=== PATIENT | male | born 1955 | race African-American/Black ===

== ENCOUNTER 2016-12-04 14:51 | Inpatient (IN) | payer OTHER ==
[~2016-12-04] VITALS: Ht 188 cm; Wt 91.6 kg
[~2016-12-04 14:51] MED LIST: ASPI81TA9 PO; FURO40TA4 PO; LISI2.5T PO; METO25TA4 PO; POTA20TA4 PO; SPIR25TA PO; SPIR25TA3 PO
[2016-12-04 15:55] VITALS: BP 129/78
[2016-12-04 15:56] VITALS: BP 129/78
[2016-12-04] MEDS ORDERED: GOLD1CAP5 PO (16:29)
[2016-12-04] MEDS ORDERED: ALLO300T PO (16:29)
[2016-12-04] MEDS ORDERED: IBUP100O7 PO (16:29)
[2016-12-04] MEDS ORDERED: FUROSEMIDE 40 MG/4 ML VIAL IVP ONE (17:00)
--- NOTE | 2016-12-04 17:02 | EKG ---
[facility] [address] [place] [address] Test Date: 2016-12-04 Test Time: 16:55:03 Pat Name: BRYAN CR Department: Room: [facility] Gender: M [employer] Firer/Fireman: : 1955 Requested By: ZULEYMA MATTA Order Number: [id number] Reading MD: Measurements Intervals Outlook Rate: 71 P: 0 OR: 184 QRS: -42 QRSD: 108 T: 129 QT: 430 QTc: 473 Interpretive Statements SINUS RHYTHM ABNORMAL LEFT AXIS DEVIATION LOW LIMB LEAD VOLTAGE LVH WITH REPOLARIZATION ABNORMALITY ABNORMAL ECG RI6.01 Unconfirmed report Compared to ECG 09/10/2016 18:34:19 Left ventricular hypertrophy now present Early repolarization now present Left anterior fascicular block no longer present Right bundle-branch block no longer present Bifascicular block no longer present
[2016-12-04 17:28] LABS: BASO % 1 % (0-3); EOS % 23 % (0-3); HEMATOCRIT 33.1 % (39.0-53.0); HEMOGLOBIN 10.6 g/dL (13.0-17.5); LYMPH # 0.7 x10^3/uL (1.0-4.8); LYMPH % 18 % (24-48); MEAN CORPUSCULAR HEMOGLOBIN 31 pg (25-35); MEAN CORPUSCULAR HGB CONC 32 g/dL (31-37); MEAN CORPUSCULAR VOLUME 99 fL (79-100); MONO % 13 % (0-9); NEUT % 45 % (31-73); PLATELET COUNT 151 x10^3/uL (140-400); RED BLOOD COUNT 3.36 x10^6/uL (4.30-5.70); RED CELL DISTRIBUTION WIDTH 17.2 % (11.5-14.5); WHITE BLOOD COUNT 3.7 x10^3/uL (4.0-11.0)
[2016-12-04 17:39] LABS: BILIRUBIN,URINE NEGATIVE (NEG); GLUCOSE,URINE NEGATIVE (NEG); NITRITE,URINE NEGATIVE (NEG); PROTEIN,URINE 100 mg/dL (NEG-TRACE)
[2016-12-04 17:41] LABS: CALCIUM 8.4 mg/dL (8.5-10.1); CREATININE 1.1 mg/dL (0.7-1.3); GFR 82.3; POTASSIUM 4.1 mmol/L (3.5-5.1)
[2016-12-04 17:45] LABS: ALBUMIN 3.2 g/dL (3.4-5.0); ALBUMIN/GLOBULIN RATIO 0.7 (1.0-1.7); MAGNESIUM 2.3 mg/dL (1.8-2.4); TOTAL PROTEIN 7.5 g/dL (6.4-8.2)
[2016-12-04 17:46] LABS: BACTERIA,URINE FEW /HPF (0-FEW); RBC,URINE 0 /HPF (0-2)
[2016-12-04 17:48] LABS: SQUAMOUS EPITHELIAL CELL,UR OCC /LPF
[2016-12-04] MEDS: FUROSEMIDE INJ 100 MG in IV NORMAL SALINE 100ML 100 ML IV PRN (18:02)
[2016-12-04 19:00] VITALS: BP 126/81
[2016-12-04] MEDS ORDERED: CHLORDIAZEPOXIDE HCL 10 MG CAPSULE PO PRN (21:45)
[2016-12-04] MEDS ORDERED: CHLORDIAZEPOXIDE HCL 25 MG CAPSULE PO PRN (21:45)
[2016-12-04] MEDS ORDERED: NICOTINE 7MG PATCH. TD ONE (22:00)
[2016-12-04] MEDS: CHLORDIAZEPOXIDE HCL 25 MG CAPSULE PO SCH (22:57)
[2016-12-04 23:00] VITALS: BP 120/76
--- NOTE | 2016-12-04 23:32 | HP ---
ADMIT DATE: 12/04/2016 HISTORY OF PRESENT ILLNESS: This is a 61-year-old black male who came in to my office for the first time accompanied by his [id number]. He is not very clear in his speech. The uvignpt-pv-kcs simply brushes aside and tries to fill in. Evidently, he was last hospitalized at [facility] in August. He felt he did not get the care he needed though the truth is that he was noncompliant. He did not remember his physician's names, but did not want to go back to them. His main complaint was one of severe swelling of his thighs. He also complained of orthopnea and paroxysmal nocturnal dyspnea. He complained of abdominal distension. He had been taking his medications regularly, which consisted of allopurinol 300 mg a day, aspirin 81 mg a day, Lasix 40 mg twice a day, ibuprofen 200 mg twice a day, lisinopril 2.5 mg a day, metoprolol tartrate 25 mg twice a day and spironolactone 25 mg twice a day. He smokes, he says, half a pack of cigarettes a day. He has a history of 30 pack years of smoking. He continues to drink. He drinks hard liquor 1-1/2 pints a day. He complains of no pain. He gives no history of myocardial infarction or of a stroke. There is no history of diabetes mellitus. In August, he underwent a myocardial perfusion imaging study, which showed no evidence of ischemia. Also in April, he underwent an echocardiogram, which showed an EF of less than 15%. The left atrium was enlarged. The right ventricular systolic pressure was 55 mmHg. There was mild mitral regurgitation and moderate tricuspid regurgitation. PHYSICAL EXAMINATION: GENERAL: He was in no distress. As stated before, he was able to answer questions, but the speech was somewhat slurred. I could not quite understand him and he preferred that I talked to his [id number]-pm-aap. VITAL SIGNS: He is afebrile. The heart rate was 100 per minute and regular. The blood pressure was 120/80. The oxygen saturation was 99% on room air. LUNGS: Clear. NECK: The jugular venous pressure was raised. HEART: The first and second sounds are normal. There is no S3 or S4. ABDOMEN: Distended. There is significant edema of the abdominal wall. EXTREMITIES: There is significant edema of both thighs. There was only 1+ edema of the legs. GENITALIA: He said that his scrotum was enlarged and this was not examined at that point. An EKG shows a first degree AV block. There are no significant changes. A chest x-ray showed mild cardiomegaly and increase in pulmonary vascular congestion. LABORATORY DATA: Hemoglobin was 10.6 grams percent. The white cell count was 3700 with 45% neutrophils, 18% lymphocytes, 13% monocytes and 23% eosinophils. The sodium was 146, potassium 4.1. The BUN was 20, creatinine was 1.1. The BNP was 5626. The albumin is 3.2 grams percent. Urinalysis was negative. IMPRESSION: 1. History of nonischemic cardiomyopathy. 2. Acute on chronic systolic congestive heart failure. 3. Significant alcoholism contributing to the cardiomyopathy. 4. Eosinophilia, etiology unclear. 5. Tobaccoism. 6. Peripheral vascular disease. This patient has severe right heart failure. It is quite likely that he is not observing his diuretics as well. We will thus initiate vigorous diuresis keeping a close watch on his blood pressure and his creatinine. We could probably increase the dose of the spironolactone if you can presume that he is taking his medications at home. This is probably doubtful. He does drink very heavily. He probably is not alert the entire time. We will need to give him tranquilizers to prevent delirium tremens. He admits to being noncompliant with his diet and does take an increased salt. We will have the dietitian talk to him, but I doubt that he is going to change his habits. He lives with his or significant other. I will attempt to talk to her. The [id number]-mp-sxm tells me that the probably would want to talk to. Also, during this hospitalization, we will give him thiamine and encourage him to continue to take the thiamine and consider Alcoholics Anonymous. I am not quite sure whether he comprehend the fact that if he stays away from alcohol, it is quite possible that his left ventricular systolic function would improve. As far as an AICD is concerned, with all his other comorbidities and noncompliance, I am not quite sure whether AICD is warranted. An AICD was certainly not placed by the other cardiologists in 08/2016 and I agree with them. He had a known cardiomyopathy in April and so he would have qualified for an AICD in August. ZULEYMA MATTA MD DR: GIOVANNA/kg JOB#: [id number] / [id number]
[2016-12-05 05:58] LABS: CALCIUM 8.1 mg/dL (8.5-10.1); CREATININE 1.1 mg/dL (0.7-1.3); GFR 82.3; POTASSIUM 3.9 mmol/L (3.5-5.1); URIC ACID 7.1 mg/dL (3.5-7.2)
[2016-12-05 07:20] VITALS: BP 126/79
--- NOTE | 2016-12-05 08:29 | RAD ---
Exam performed: 2 views of the chest. Indication: CHF Date of Service:12/04/2016 6:41 PM . Comparison : Single view chest from 09/08/16 Findings: PA and lateral radiographs of the chest reveal a mildly enlarged cardiomediastinal contour. Pulmonary vascularity appears mildly congested streaky linear opacities are seen in both lung bases. No pleural fluid is seen. The visualized osseous structures are unremarkable. Impression: Borderline cardiomegaly with mild central vascular congestion. Mild bibasal atelectasis. The findings are similar to the previous exam of 09/10/16
[2016-12-05] MEDS: CARVEDILOL 3.125 MG TABLET PO SCH ×2 (08:53→17:30)
[2016-12-05] MEDS: ASPIRIN 81 MG TAB.CHEW PO SCH (08:53)
[2016-12-05] MEDS: LISINOPRIL 2.5 MG TABLET PO SCH (08:53)
[2016-12-05] MEDS: SPIRONOLACTONE 25 MG TABLET PO SCH ×2 (08:53→15:45)
[2016-12-05] MEDS: CHLORDIAZEPOXIDE HCL 25 MG CAPSULE PO SCH ×3 (08:53→20:29)
[2016-12-05] MEDS: NICOTINE 7MG PATCH. TD SCH (08:54)
[2016-12-05] MEDS: ALLOPURINOL 300 MG TABLET. PO SCH (08:54)
[2016-12-05] MEDS: THIAMINE 100 MG in IV NORMAL SALINE 50ML 50 ML IV SCH (09:17)
--- NOTE | 2016-12-05 09:19 | PDOC ---
Provider Note Provider Note UROLOGY: Dr Proctor is currently out of town for next 10 days Thank-you, ZEINA PROCTOR DO Dec 05, 2016 09:19
[2016-12-05 10:25] VITALS: BP 110/65
--- NOTE | 2016-12-05 13:50 | PDOC2 ---
CONSULT Date of Consult Date of Consult DATE: 12/05/16 TIME: 13:43 Reason for Consult Reason for Consult: im management Referring Physician Referring Physician: dr. Ko Identification/Chief Complaint Chief Complaint sob, leg edema Source Source: Chart review, Patient History of Present Illness Reason for Visit: 61yo M, severe systolic CHF with EF 27% comes for sob and leg edema for 1 week, exertional sob, orthopnea, paraxysmal dyspnea, with mild cough, clear sputum. no fever ,chills. + distended abd smoke on lasix 40mg bid at home. Past Medical History Cardiovascular: CHF, HTN, Other Pulmonary: No pertinent hx GI: No pertinent hx Heme/Onc: No pertinent hx Hepatobiliary: No pertinent hx Psych: No pertinent hx Musculoskeletal: Osteoarthritis Rheumatologic: Gout Infectious disease: No pertinent hx Renal/: No pertinent hx Endocrine: No pertinent hx Past Surgical History Past Surgical History: Hernia Repair Family History Family History: Diabetes, Hypertension, Family History Unknown Social History <1 pack per day ALCOHOL: heavy Drugs: None Lives: with Family Current Medications Current Medications Current Medications Furosemide 40 mg 40 mg 1X ONCE IVP Last administered on 12/04/16 17:59; Start 12/04/16 at 17:00; Stop 12/04/16 at 17:01; Status DC Furosemide/Sodium Chloride (Lasix Drip/Iv Sodium Chloride 0.9% 100ml) 100 ml @ 0 mls/hr CONT PRN IV SEE I/O RECORD Last administered on 12/04/16 18:02; Start 12/04/16 at 16:45 Allopurinol (Zyloprim) 300 mg DAILY PO Last administered on 12/05/16 08:54; Start 12/05/16 at 09:00 Lisinopril (Prinivil) 2.5 mg DAILY PO Last administered on 12/05/16 08:53; Start 12/05/16 at 09:00 Carvedilol (Coreg) 3.125 mg BIDWMEALS PO Last administered on 12/05/16 08:53; Start 12/05/16 at 08:00 Aspirin (Children'S Aspirin) 81 mg DAILYWBKFT PO Last administered on 08:53; Start 12/05/16 at 08:00 Spironolactone 25 mg 25 mg BID94 PO Last administered on 12/05/16 08:53; Start 12/05/16 at 09:00 Thiamine HCl/ Sodium Chloride (Iv Sodium Chloride 0.9% 50ml) 51 ml @ 102 mls/ hr DAILY IV Last administered on 12/05/16 09:17; Start 12/05/16 at 09:00 Nicotine (Nicoderm Cq 7mg) 1 patch DAILY TD Last administered on 12/05/16 08: 54; Start 12/05/16 at 09:00 Chlordiazepoxide (Librium) 10 mg PRN Q4HRS PRN PO ANXIETY; Start 12/04/16 at 21 :45; Stop 12/04/16 at 21:45; Status DC Chlordiazepoxide (Librium) 25 mg Q8HRS PO Last administered on 12/05/16 08:53 ; Start 12/04/16 at 22:00 Chlordiazepoxide (Librium) 10 mg PRN Q4HRS PRN PO ANXIETY; Start 12/04/16 at 21 :45 Nicotine (Nicoderm Cq 7mg) 1 patch 1X ONCE TD Last administered on 12/04/16 22:57; Start 12/04/16 at 22:00; Stop 12/04/16 at 22:01; Status DC Active Scripts Active Lisinopril 2.5 Mg Tablet 1 Tab PO DAILY Metoprolol Tartrate 25 Mg Tablet 1 Tab PO BID Aldactone (Spironolactone) 25 Mg Tablet 25 Mg PO DAILY Furosemide 40 Mg Tablet 40 Mg PO BID Aspirin Ec (Aspirin) 81 Mg Tablet.dr 81 Mg PO DAILYWBKFT Reported Echinacea & Goldenseal Cap (Prado Seal/Echinacea Purpurea) 1 Each Capsule 1 Each PO DAILY Ibuprofen 100 Mg/5 Ml Oral.susp 200 Mg PO DAILY Allopurinol 300 Mg Tablet 1 Tab PO DAILY Spironolactone 25 Mg Tablet 1 Tab PO DAILY Allergies Allergies: Coded Allergies: No Known Drug Allergies (Unverified , 05/20/16) Physical Exam General: Alert, Oriented X3, Cooperative HEENT: Atraumatic, PERRLA Lungs: Other (bl basilar rales) Abdomen: Normal bowel sounds, Soft, Other (distended abd, mild) Extremities: No clubbing, Other (bl leg 1 + edema) Skin: No rashes, No breakdown Neuro: Normal gait Vitals VITALS Vital Signs Date Time Temp Pulse Resp B/P Pulse Ox O2 Delivery O2 Flow Rate FiO2 12/05/16 10:25 98.1 75 20 110/65 100 Nasal Cannula 2.0 98.1 Labs Labs Laboratory Tests Test 12/04/16 17:10 12/04/16 17:24 12/05/16 04:30 White Blood Count 3.7x10^3/uL (4.0-11.0) Red Blood Count 3.36x10^6/uL (4.30-5.70) Hemoglobin 10.6g/dL (13.0-17.5) Hematocrit 33.1% (39.0-53.0) Mean Corpuscular Volume 99fL (79-100) Mean Corpuscular Hemoglobin 31pg (25-35) Mean Corpuscular Hemoglobin Concent 32g/dL (31-37) Red Cell Distribution Width 17.2% (11.5-14.5) Platelet Count 151x10^3/uL (140-400) Neutrophils (%) (Auto) 45% (31-73) Lymphocytes (%) (Auto) 18% (24-48) Monocytes (%) (Auto) 13% (0-9) Eosinophils (%) (Auto) 23% (0-3) Basophils (%) (Auto) 1% (0-3) Neutrophils # (Auto) 1.6x10^3uL (1.8-7.7) Lymphocytes # (Auto) 0.7x10^3/uL (1.0-4.8) Monocytes # (Auto) 0.5x10^3/uL (0.0-1.1) Eosinophils # (Auto) 0.9x10^3/uL (0.0-0.7) Basophils # (Auto) 0.0x10^3/uL (0.0-0.2) Sodium Level 146mmol/L (136-145) 144mmol/L (136-145) Potassium Level 4.1mmol/L (3.5-5.1) 3.9mmol/L (3.5-5.1) Chloride Level 108mmol/L (98-107) 107mmol/L (98-107) Carbon Dioxide Level 31mmol/L (21-32) 29mmol/L (21-32) Anion Gap 7 (6-14) 8 (6-14) Blood Urea Nitrogen 20mg/dL (8-26) 20mg/dL (8-26) Creatinine 1.1mg/dL (0.7-1.3) 1.1mg/dL (0.7-1.3) Estimated GFR (Cockcroft-Gault) 82.3 82.3 BUN/Creatinine Ratio 18 (6-20) Glucose Level 78mg/dL (70-99) 85mg/dL (70-99) Calcium Level 8.4mg/dL (8.5-10.1) 8.1mg/dL (8.5-10.1) Magnesium Level 2.3mg/dL (1.8-2.4) Total Bilirubin 1.0mg/dL (0.2-1.0) Aspartate Amino Transf (AST/SGOT) 24U/L (15-37) Alanine Aminotransferase (ALT/SGPT) 18U/L (16-63) Alkaline Phosphatase 200U/L (46-116) TA-Vvc-T-Type Natriuretic Peptide 5626pg/mL (0-124) Total Protein 7.5g/dL (6.4-8.2) Albumin 3.2g/dL (3.4-5.0) Albumin/Globulin Ratio 0.7 (1.0-1.7) Urine Collection Type Unknown Urine Color Yellow Urine Clarity Clear Urine pH 6.0 Urine Specific [place] 1.010 Urine Protein 100mg/dL (NEG-TRACE) Urine Glucose (UA) Negativemg/dL (NEG) Urine Ketones (Stick) Negativemg/dL (NEG) Urine Blood Negative (NEG) Urine Nitrite Negative (NEG) Urine Bilirubin Negative (NEG) Urine Urobilinogen Dipstick 1.0mg/dL (0.2 mg/dL) Urine Leukocyte Esterase Negative (NEG) Urine RBC 0/HPF (0-2) Urine WBC 1-4/HPF (0-4) Urine Squamous Epithelial Cells Occ/LPF Urine Bacteria Few/HPF (0-FEW) Urine Hyaline Casts Few/HPF Urine Mucus Slight/LPF Uric Acid 7.1mg/dL (3.5-7.2) Laboratory Tests Test 12/04/16 17:10 12/04/16 17:24 12/05/16 04:30 White Blood Count 3.7x10^3/uL (4.0-11.0) Red Blood Count 3.36x10^6/uL (4.30-5.70) Hemoglobin 10.6g/dL (13.0-17.5) Hematocrit 33.1% (39.0-53.0) Mean Corpuscular Volume 99fL (79-100) Mean Corpuscular Hemoglobin 31pg (25-35) Mean Corpuscular Hemoglobin Concent 32g/dL (31-37) Red Cell Distribution Width 17.2% (11.5-14.5) Platelet Count 151x10^3/uL (140-400) Neutrophils (%) (Auto) 45% (31-73) Lymphocytes (%) (Auto) 18% (24-48) Monocytes (%) (Auto) 13% (0-9) Eosinophils (%) (Auto) 23% (0-3) Basophils (%) (Auto) 1% (0-3) Neutrophils # (Auto) 1.6x10^3uL (1.8-7.7) Lymphocytes # (Auto) 0.7x10^3/uL (1.0-4.8) Monocytes # (Auto) 0.5x10^3/uL (0.0-1.1) Eosinophils # (Auto) 0.9x10^3/uL (0.0-0.7) Basophils # (Auto) 0.0x10^3/uL (0.0-0.2) Sodium Level 146mmol/L (136-145) 144mmol/L (136-145) Potassium Level 4.1mmol/L (3.5-5.1) 3.9mmol/L (3.5-5.1) Chloride Level 108mmol/L (98-107) 107mmol/L (98-107) Carbon Dioxide Level 31mmol/L (21-32) 29mmol/L (21-32) Anion Gap 7 (6-14) 8 (6-14) Blood Urea Nitrogen 20mg/dL (8-26) 20mg/dL (8-26) Creatinine 1.1mg/dL (0.7-1.3) 1.1mg/dL (0.7-1.3) Estimated GFR (Cockcroft-Gault) 82.3 82.3 BUN/Creatinine Ratio 18 (6-20) Glucose Level 78mg/dL (70-99) 85mg/dL (70-99) Calcium Level 8.4mg/dL (8.5-10.1) 8.1mg/dL (8.5-10.1) Magnesium Level 2.3mg/dL (1.8-2.4) Total Bilirubin 1.0mg/dL (0.2-1.0) Aspartate Amino Transf (AST/SGOT) 24U/L (15-37) Alanine Aminotransferase (ALT/SGPT) 18U/L (16-63) Alkaline Phosphatase 200U/L (46-116) JT-Qlr-B-Type Natriuretic Peptide 5626pg/mL (0-124) Total Protein 7.5g/dL (6.4-8.2) Albumin 3.2g/dL (3.4-5.0) Albumin/Globulin Ratio 0.7 (1.0-1.7) Urine Collection Type Unknown Urine Color Yellow Urine Clarity Clear Urine pH 6.0 Urine Specific [place] 1.010 Urine Protein 100mg/dL (NEG-TRACE) Urine Glucose (UA) Negativemg/dL (NEG) Urine Ketones (Stick) Negativemg/dL (NEG) Urine Blood Negative (NEG) Urine Nitrite Negative (NEG) Urine Bilirubin Negative (NEG) Urine Urobilinogen Dipstick 1.0mg/dL (0.2 mg/dL) Urine Leukocyte Esterase Negative (NEG) Urine RBC 0/HPF (0-2) Urine WBC 1-4/HPF (0-4) Urine Squamous Epithelial Cells Occ/LPF Urine Bacteria Few/HPF (0-FEW) Urine Hyaline Casts Few/HPF Urine Mucus Slight/LPF Uric Acid 7.1mg/dL (3.5-7.2) Assessment/Plan Assessment/Plan 1. acute on chronic systolic CHF 2. h/o nonischemia cardiomyopathy 3. tobaccoism 4. PVD 5. Alcoholism 6. anemia ,2/2 chronic dz 7. chronic eos, not clear etiology plan: 1. fu with card on lasix drip now 2. cont home meds, hold lasix po for now 3. ABD US 4. DVT PPX Thanks for asking [facility] for consult MICHAELA HOLLEY MD Dec 05, 2016 13:50
[2016-12-05] MEDS ORDERED: ACETAMINOPHEN 325 MG TABLET. PO PRN (14:00)
[2016-12-05] MEDS ORDERED: ONDANSETRON PF 4 MG/2 ML VIAL. IV PRN (14:00)
[2016-12-05 14:07] VITALS: BP 94/72
[2016-12-05] MEDS: ENOXAPARIN 40 MG/0.4 ML DISP.SYRIN. SQ SCH (15:45)
[2016-12-05] MEDS: FUROSEMIDE INJ 100 MG in IV NORMAL SALINE 100ML 100 ML IV PRN (15:46)
--- NOTE | 2016-12-05 15:59 | PDOC ---
Provider Note Provider Note He feels better though still feels as though he is bloated. Urine output of 2600 mL has been recorded in the last 24 hours. There has been a weight loss of 4 pounds. Plan to increase the dose of the Lasix drip. I talked to him about alcoholism and he appears to understand and promises not drink again. No evidence of delirium tremens. ZULEYMA MATTA MD Dec 05, 2016 15:59
[2016-12-05 19:00] VITALS: BP 93/61
[2016-12-05 23:00] VITALS: BP 104/57
[2016-12-06 03:33] VITALS: BP 116/64
[2016-12-06 04:54] LABS: BASO % 1 % (0-3); EOS % 25 % (0-3); HEMATOCRIT 30.6 % (39.0-53.0); LYMPH # 0.8 x10^3/uL (1.0-4.8); LYMPH % 23 % (24-48); MEAN CORPUSCULAR HEMOGLOBIN 32 pg (25-35); MEAN CORPUSCULAR HGB CONC 33 g/dL (31-37); MEAN CORPUSCULAR VOLUME 97 fL (79-100); MONO % 13 % (0-9); NEUT % 37 % (31-73); PLATELET COUNT 141 x10^3/uL (140-400); RED BLOOD COUNT 3.15 x10^6/uL (4.30-5.70); RED CELL DISTRIBUTION WIDTH 17.1 % (11.5-14.5); WHITE BLOOD COUNT 3.6 x10^3/uL (4.0-11.0)
[2016-12-06 05:14] LABS: CALCIUM 8.1 mg/dL (8.5-10.1); CREATININE 1.1 mg/dL (0.7-1.3); GFR 82.3
[2016-12-06] MEDS: CHLORDIAZEPOXIDE HCL 25 MG CAPSULE PO SCH ×3 (05:52→22:16)
[2016-12-06 07:35] VITALS: BP 128/78
--- NOTE | 2016-12-06 08:37 | RAD ---
EXAM: ABDOMINAL ULTRASOUND. HISTORY: Abdominal distention. COMPARISON: None. FINDINGS: Sonographic evaluation of the abdomen was performed. The liver appears normal in parenchymal echotexture. There are no focal lesions. The spleen measures 12 cm. The gallbladder is contracted but otherwise unremarkable. There is no sonographic Dale sign. The common duct is at the upper limits of normal caliber at 7 mm. No distal obstructing lesion is appreciated. The pancreas is obscured by bowel gas. The right kidney measures 11.7 cm. The lower pole is obscured by bowel gas. Cortical thickness and echogenicity are preserved. There is no hydronephrosis. The left kidney measures 12.3 cm. Cortical thickness and echogenicity are preserved. There is no hydronephrosis. The visualized portions of the abdominal aorta and inferior vena cava are grossly patent and normal in caliber. A right pleural effusion is noted. There is a small mild ascites. IMPRESSION: 1. Small amount of ascites. 2. Right pleural effusion. 3. Common duct at upper limits of normal caliber. Correlate for cholestasis to assess significance. 4. The pancreas is obscured currently.
[2016-12-06] MEDS: CARVEDILOL 3.125 MG TABLET PO SCH ×2 (08:45→16:28)
[2016-12-06] MEDS: LISINOPRIL 2.5 MG TABLET PO SCH (08:45)
[2016-12-06] MEDS: ALLOPURINOL 300 MG TABLET. PO SCH (08:45)
[2016-12-06] MEDS: ASPIRIN 81 MG TAB.CHEW PO SCH (08:46)
[2016-12-06] MEDS: SPIRONOLACTONE 25 MG TABLET PO SCH ×2 (08:46→16:28)
[2016-12-06] MEDS: NICOTINE 7MG PATCH. TD SCH (08:46)
[2016-12-06] MEDS: THIAMINE 100 MG in IV NORMAL SALINE 50ML 50 ML IV SCH (09:08)
[2016-12-06] MEDS: FUROSEMIDE INJ 100 MG in IV NORMAL SALINE 100ML 100 ML IV PRN (09:08)
[2016-12-06 10:15] VITALS: BP 116/72
--- NOTE | 2016-12-06 10:19 | PDOC2 ---
CONSULT Date of Consult Date of Consult DATE: 12/06/16 TIME: 10:12 Reason for Consult Reason for Consult: Eosinophilia Referring Physician Referring Physician: Stefani Identification/Chief Complaint Chief Complaint CHF Source Source: Chart review, Patient History of Present Illness Reason for Visit: 61yo alcoholic and active smoker presented with anasarca and respiratory failure consistent with exacerbation from known systolic CHF. Found to have mild eosinophilia (AEC 900) and anemia. We were consulted to comment on these abnormalities. Patient notes long-standing heavy drinking, with minimum of 6-pack Gu[place] 45 daily and often sharing 1.5 pints of whiskey with friends. Has been more dyspneic lately and less able to play basketball. Denies significant allergy or asthma history. No diarrhea or GI complaints. Past Medical History Cardiovascular: CHF, HTN, Other Pulmonary: No pertinent hx GI: No pertinent hx Heme/Onc: No pertinent hx Hepatobiliary: No pertinent hx Psych: No pertinent hx Musculoskeletal: Osteoarthritis Rheumatologic: Gout Infectious disease: No pertinent hx Renal/: No pertinent hx Endocrine: No pertinent hx Past Surgical History Past Surgical History: Hernia Repair Family History Family History: Diabetes, Hypertension Social History <1 pack per day ALCOHOL: heavy Drugs: None Lives: with Family Current Medications Current Medications Current Medications Furosemide 40 mg 40 mg 1X ONCE IVP Last administered on 12/04/16 17:59; Start 12/04/16 at 17:00; Stop 12/04/16 at 17:01; Status DC Furosemide/Sodium Chloride (Lasix Drip/Iv Sodium Chloride 0.9% 100ml) 100 ml @ 0 mls/hr CONT PRN IV SEE I/O RECORD Last administered on 12/06/16 09:08; Start 12/04/16 at 16:45 Allopurinol (Zyloprim) 300 mg DAILY PO Last administered on 12/06/16 08:45; Start 12/05/16 at 09:00 Lisinopril (Prinivil) 2.5 mg DAILY PO Last administered on 12/06/16 08:45; Start 12/05/16 at 09:00 Carvedilol (Coreg) 3.125 mg BIDWMEALS PO Last administered on 12/06/16 08:45; Start 12/05/16 at 08:00 Aspirin (Children'S Aspirin) 81 mg DAILYWBKFT PO Last administered on 08:46; Start 12/05/16 at 08:00 Spironolactone 25 mg 25 mg BID94 PO Last administered on 12/06/16 08:46; Start 12/05/16 at 09:00 Thiamine HCl/ Sodium Chloride (Iv Sodium Chloride 0.9% 50ml) 51 ml @ 102 mls/ hr DAILY IV Last administered on 12/06/16 09:08; Start 12/05/16 at 09:00 Nicotine (Nicoderm Cq 7mg) 1 patch DAILY TD Last administered on 12/06/16 08: 46; Start 12/05/16 at 09:00 Chlordiazepoxide (Librium) 10 mg PRN Q4HRS PRN PO ANXIETY; Start 12/04/16 at 21 :45; Stop 12/04/16 at 21:45; Status DC Chlordiazepoxide (Librium) 25 mg Q8HRS PO Last administered on 12/06/16 05:52 ; Start 12/04/16 at 22:00 Chlordiazepoxide (Librium) 10 mg PRN Q4HRS PRN PO ANXIETY; Start 12/04/16 at 21 :45 Nicotine (Nicoderm Cq 7mg) 1 patch 1X ONCE TD Last administered on 12/04/16 22:57; Start 12/04/16 at 22:00; Stop 12/04/16 at 22:01; Status DC Acetaminophen (Tylenol) 650 mg PRN Q6HRS PRN PO MILD PAIN / TEMP Last administered on 12/05/16 20:28; Start 12/05/16 at 14:00 Ondansetron HCl (Zofran) 4 mg PRN Q6HRS PRN IV NAUSEA/VOMITING; Start 12/05/16 at 14:00 Enoxaparin Sodium (Lovenox 40mg Syringe) 40 mg Q24H SQ Last administered on 15:45; Start 12/05/16 at 15:00 Active Scripts Active Lisinopril 2.5 Mg Tablet 1 Tab PO DAILY Metoprolol Tartrate 25 Mg Tablet 1 Tab PO BID Aldactone (Spironolactone) 25 Mg Tablet 25 Mg PO DAILY Furosemide 40 Mg Tablet 40 Mg PO BID Aspirin Ec (Aspirin) 81 Mg Tablet.dr 81 Mg PO DAILYWBKFT Reported Echinacea & Goldenseal Cap (Prado Seal/Echinacea Purpurea) 1 Each Capsule 1 Each PO DAILY Ibuprofen 100 Mg/5 Ml Oral.susp 200 Mg PO DAILY Allopurinol 300 Mg Tablet 1 Tab PO DAILY Spironolactone 25 Mg Tablet 1 Tab PO DAILY Allergies Allergies: Coded Allergies: No Known Drug Allergies (Unverified , 05/20/16) ROS General: No: Chills PSYCHOLOGICAL ROS: No: Anxiety Eyes: No Blurry vision HEENT: No: Sinus pain ALLERGY AND IMMUNOLOGY: No: Hives, Seasonal Allergies Hematological and Lymphatic: No: Bleeding Problems Respiratory: YES: Shortness of breath, No: Cough Cardiovascular: yes Edema Gastrointestinal: No Diarrhea, No Nausea Genitourinary: No Dysuria Musculoskeletal: No Gait Disturbance Neurological: No Behavorial Changes Skin: No Rash Physical Exam General: Alert, Oriented X3 Lungs: Other (Decreased BS at bilateral bases) Heart: Regular rate Abdomen: Soft, No tenderness Extremities: Other (Bilateral pittign LE edema) Skin: No rashes Neuro: Normal speech Psych/Mental Status: Mental status NL MUSCULOSKELETAL: No joint tenderness Vitals VITALS Vital Signs Date Time Temp Pulse Resp B/P Pulse Ox O2 Delivery O2 Flow Rate FiO2 12/06/16 08:45 76 128/78 12/06/16 08:00 Room Air 12/06/16 07:35 96.7 20 100 96.7 12/05/16 14:07 2.0 Labs Labs Laboratory Tests Test 12/04/16 17:10 12/04/16 17:24 12/05/16 04:30 12/06/16 04:26 White Blood Count 3.7x10^3/uL (4.0-11.0) 3.6x10^3/uL (4.0-11.0) Red Blood Count 3.36x10^6/uL (4.30-5.70) 3.15x10^6/uL (4.30-5.70) Hemoglobin 10.6g/dL (13.0-17.5) 10.0g/dL (13.0-17.5) Hematocrit 33.1% (39.0-53.0) 30.6% (39.0-53.0) Mean Corpuscular Volume 99fL (79-100) 97fL (79-100) Mean Corpuscular Hemoglobin 31pg (25-35) 32pg (25-35) Mean Corpuscular Hemoglobin Concent 32g/dL (31-37) 33g/dL (31-37) Red Cell Distribution Width 17.2% (11.5-14.5) 17.1% (11.5-14.5) Platelet Count 151x10^3/uL (140-400) 141x10^3/uL (140-400) Neutrophils (%) (Auto) 45% (31-73) 37% (31-73) Lymphocytes (%) (Auto) 18% (24-48) 23% (24-48) Monocytes (%) (Auto) 13% (0-9) 13% (0-9) Eosinophils (%) (Auto) 23% (0-3) 25% (0-3) Basophils (%) (Auto) 1% (0-3) 1% (0-3) Neutrophils # (Auto) 1.6x10^3uL (1.8-7.7) 1.3x10^3uL (1.8-7.7) Lymphocytes # (Auto) 0.7x10^3/uL (1.0-4.8) 0.8x10^3/uL (1.0-4.8) Monocytes # (Auto) 0.5x10^3/uL (0.0-1.1) 0.5x10^3/uL (0.0-1.1) Eosinophils # (Auto) 0.9x10^3/uL (0.0-0.7) 0.9x10^3/uL (0.0-0.7) Basophils # (Auto) 0.0x10^3/uL (0.0-0.2) 0.0x10^3/uL (0.0-0.2) Sodium Level 146mmol/L (136-145) 144mmol/L (136-145) 142mmol/L (136-145) Potassium Level 4.1mmol/L (3.5-5.1) 3.9mmol/L (3.5-5.1) 4.0mmol/L (3.5-5.1) Chloride Level 108mmol/L (98-107) 107mmol/L (98-107) 105mmol/L (98-107) Carbon Dioxide Level 31mmol/L (21-32) 29mmol/L (21-32) 30mmol/L (21-32) Anion Gap 7 (6-14) 8 (6-14) 7 (6-14) Blood Urea Nitrogen 20mg/dL (8-26) 20mg/dL (8-26) 20mg/dL (8-26) Creatinine 1.1mg/dL (0.7-1.3) 1.1mg/dL (0.7-1.3) 1.1mg/dL (0.7-1.3) Estimated GFR (Cockcroft-Gault) 82.3 82.3 82.3 BUN/Creatinine Ratio 18 (6-20) Glucose Level 78mg/dL (70-99) 85mg/dL (70-99) 90mg/dL (70-99) Calcium Level 8.4mg/dL (8.5-10.1) 8.1mg/dL (8.5-10.1) 8.1mg/dL (8.5-10.1) Magnesium Level 2.3mg/dL (1.8-2.4) Total Bilirubin 1.0mg/dL (0.2-1.0) Aspartate Amino Transf (AST/SGOT) 24U/L (15-37) Alanine Aminotransferase (ALT/SGPT) 18U/L (16-63) Alkaline Phosphatase 200U/L (46-116) CT-Ezs-Z-Type Natriuretic Peptide 5626pg/mL (0-124) Total Protein 7.5g/dL (6.4-8.2) Albumin 3.2g/dL (3.4-5.0) Albumin/Globulin Ratio 0.7 (1.0-1.7) Urine Collection Type Unknown Urine Color Yellow Urine Clarity Clear Urine pH 6.0 Urine Specific [place] 1.010 Urine Protein 100mg/dL (NEG-TRACE) Urine Glucose (UA) Negativemg/dL (NEG) Urine Ketones (Stick) Negativemg/dL (NEG) Urine Blood Negative (NEG) Urine Nitrite Negative (NEG) Urine Bilirubin Negative (NEG) Urine Urobilinogen Dipstick 1.0mg/dL (0.2 mg/dL) Urine Leukocyte Esterase Negative (NEG) Urine RBC 0/HPF (0-2) Urine WBC 1-4/HPF (0-4) Urine Squamous Epithelial Cells Occ/LPF Urine Bacteria Few/HPF (0-FEW) Urine Hyaline Casts Few/HPF Urine Mucus Slight/LPF Uric Acid 7.1mg/dL (3.5-7.2) Laboratory Tests Test 12/06/16 04:26 White Blood Count 3.6x10^3/uL (4.0-11.0) Red Blood Count 3.15x10^6/uL (4.30-5.70) Hemoglobin 10.0g/dL (13.0-17.5) Hematocrit 30.6% (39.0-53.0) Mean Corpuscular Volume 97fL (79-100) Mean Corpuscular Hemoglobin 32pg (25-35) Mean Corpuscular Hemoglobin Concent 33g/dL (31-37) Red Cell Distribution Width 17.1% (11.5-14.5) Platelet Count 141x10^3/uL (140-400) Neutrophils (%) (Auto) 37% (31-73) Lymphocytes (%) (Auto) 23% (24-48) Monocytes (%) (Auto) 13% (0-9) Eosinophils (%) (Auto) 25% (0-3) Basophils (%) (Auto) 1% (0-3) Neutrophils # (Auto) 1.3x10^3uL (1.8-7.7) Lymphocytes # (Auto) 0.8x10^3/uL (1.0-4.8) Monocytes # (Auto) 0.5x10^3/uL (0.0-1.1) Eosinophils # (Auto) 0.9x10^3/uL (0.0-0.7) Basophils # (Auto) 0.0x10^3/uL (0.0-0.2) Sodium Level 142mmol/L (136-145) Potassium Level 4.0mmol/L (3.5-5.1) Chloride Level 105mmol/L (98-107) Carbon Dioxide Level 30mmol/L (21-32) Anion Gap 7 (6-14) Blood Urea Nitrogen 20mg/dL (8-26) Creatinine 1.1mg/dL (0.7-1.3) Estimated GFR (Cockcroft-Gault) 82.3 Glucose Level 90mg/dL (70-99) Calcium Level 8.1mg/dL (8.5-10.1) Assessment/Plan Assessment/Plan Impression: - Eosinophilia - Anemia - Borderline neutrophil count - Alcoholism - Acute on chronic systolic CHF with EF 15% - Active smoker Recommend: Eosinophilia is mild and of unclear etiology, but I doubt an underlying ominous process. Differential includes allergy, parasites, and less commonly either primary hematologic process or in response to underlying hematologic malignancy. Overall, I doubt an underlying malignancy. Anemia is common in alcoholism due to direct marrow toxicity, pyridoxine 5-phosphate deficiency, and frequently underlying mineral deficiencies from poor diet. While primary hypereosinophilic syndrome can lead to CHF, this typically associated with much higher counts, more systemic symptoms and in absence of alternative explanation. 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 Recommend: - Check B12, folate, copper, iron indices - Check strongyloides serology - Start oral B-complex vitamin - Agree with supportive care for alcoholism and risk of DTs - Continue aggressive CHF management Typically alcoholic cardiomyopathy reverses with cessation of alcohol. If remains with significant CHF after stopping drinking, then would consider additional work up. ARIADNA CALDWELL MD Dec 06, 2016 10:19
[2016-12-06 11:06] LABS: % SAT IRON 20 % (15-34); IRON,SERUM 42 ug/dL (65-175)
--- NOTE | 2016-12-06 12:56 | PDOC ---
PROGRESS NOTES Chief Complaint Chief Complaint 1. acute on chronic systolic CHF 2. h/o nonischemia cardiomyopathy 3. tobaccoism 4. PVD 5. Alcoholism 6. anemia ,2/2 chronic dz 7. chronic eos, not clear etiology plan: 1. fu with card, onco on lasix drip now 2. cont home meds, hold lasix po for now 3. ABD US result seen 4. DVT PPX Thanks for asking IPC for consult History of Present Illness History of Present Illness still sob, exertional on lasix drip Vitals Vitals Vital Signs Date Time Temp Pulse Resp B/P Pulse Ox O2 Delivery O2 Flow Rate FiO2 12/06/16 10:15 96.6 78 20 116/72 99 Room Air 96.6 12/05/16 14:07 2.0 Physical Exam General: Alert, Oriented X3 Heart: Regular rate Lungs: Crackles (bl mild) Abdomen: Soft, No tenderness Extremities: Other (Bilateral pittign LE edema) Skin: No rashes Labs LABS Laboratory Tests Test 12/06/16 04:26 White Blood Count 3.6x10^3/uL (4.0-11.0) Red Blood Count 3.15x10^6/uL (4.30-5.70) Hemoglobin 10.0g/dL (13.0-17.5) Hematocrit 30.6% (39.0-53.0) Mean Corpuscular Volume 97fL (79-100) Mean Corpuscular Hemoglobin 32pg (25-35) Mean Corpuscular Hemoglobin Concent 33g/dL (31-37) Red Cell Distribution Width 17.1% (11.5-14.5) Platelet Count 141x10^3/uL (140-400) Neutrophils (%) (Auto) 37% (31-73) Lymphocytes (%) (Auto) 23% (24-48) Monocytes (%) (Auto) 13% (0-9) Eosinophils (%) (Auto) 25% (0-3) Basophils (%) (Auto) 1% (0-3) Neutrophils # (Auto) 1.3x10^3uL (1.8-7.7) Lymphocytes # (Auto) 0.8x10^3/uL (1.0-4.8) Monocytes # (Auto) 0.5x10^3/uL (0.0-1.1) Eosinophils # (Auto) 0.9x10^3/uL (0.0-0.7) Basophils # (Auto) 0.0x10^3/uL (0.0-0.2) Sodium Level 142mmol/L (136-145) Potassium Level 4.0mmol/L (3.5-5.1) Chloride Level 105mmol/L (98-107) Carbon Dioxide Level 30mmol/L (21-32) Anion Gap 7 (6-14) Blood Urea Nitrogen 20mg/dL (8-26) Creatinine 1.1mg/dL (0.7-1.3) Estimated GFR (Cockcroft-Gault) 82.3 Glucose Level 90mg/dL (70-99) Calcium Level 8.1mg/dL (8.5-10.1) Iron Level 42ug/dL (65-175) Total Iron Binding Capacity 206ug/dL (250-450) Iron Saturation 20% (15-34) Ferritin 252ng/mL (26-388) Review of Systems Review of Systems no fever, chills, chest pain Comment Review of Relevant I have reviewed the following items shell (where applicable) has been applied. Labs Laboratory Tests Test 12/04/16 17:10 12/04/16 17:24 12/05/16 04:30 12/06/16 04:26 White Blood Count 3.7x10^3/uL (4.0-11.0) 3.6x10^3/uL (4.0-11.0) Red Blood Count 3.36x10^6/uL (4.30-5.70) 3.15x10^6/uL (4.30-5.70) Hemoglobin 10.6g/dL (13.0-17.5) 10.0g/dL (13.0-17.5) Hematocrit 33.1% (39.0-53.0) 30.6% (39.0-53.0) Mean Corpuscular Volume 99fL (79-100) 97fL (79-100) Mean Corpuscular Hemoglobin 31pg (25-35) 32pg (25-35) Mean Corpuscular Hemoglobin Concent 32g/dL (31-37) 33g/dL (31-37) Red Cell Distribution Width 17.2% (11.5-14.5) 17.1% (11.5-14.5) Platelet Count 151x10^3/uL (140-400) 141x10^3/uL (140-400) Neutrophils (%) (Auto) 45% (31-73) 37% (31-73) Lymphocytes (%) (Auto) 18% (24-48) 23% (24-48) Monocytes (%) (Auto) 13% (0-9) 13% (0-9) Eosinophils (%) (Auto) 23% (0-3) 25% (0-3) Basophils (%) (Auto) 1% (0-3) 1% (0-3) Neutrophils # (Auto) 1.6x10^3uL (1.8-7.7) 1.3x10^3uL (1.8-7.7) Lymphocytes # (Auto) 0.7x10^3/uL (1.0-4.8) 0.8x10^3/uL (1.0-4.8) Monocytes # (Auto) 0.5x10^3/uL (0.0-1.1) 0.5x10^3/uL (0.0-1.1) Eosinophils # (Auto) 0.9x10^3/uL (0.0-0.7) 0.9x10^3/uL (0.0-0.7) Basophils # (Auto) 0.0x10^3/uL (0.0-0.2) 0.0x10^3/uL (0.0-0.2) Sodium Level 146mmol/L (136-145) 144mmol/L (136-145) 142mmol/L (136-145) Potassium Level 4.1mmol/L (3.5-5.1) 3.9mmol/L (3.5-5.1) 4.0mmol/L (3.5-5.1) Chloride Level 108mmol/L (98-107) 107mmol/L (98-107) 105mmol/L (98-107) Carbon Dioxide Level 31mmol/L (21-32) 29mmol/L (21-32) 30mmol/L (21-32) Anion Gap 7 (6-14) 8 (6-14) 7 (6-14) Blood Urea Nitrogen 20mg/dL (8-26) 20mg/dL (8-26) 20mg/dL (8-26) Creatinine 1.1mg/dL (0.7-1.3) 1.1mg/dL (0.7-1.3) 1.1mg/dL (0.7-1.3) Estimated GFR (Cockcroft-Gault) 82.3 82.3 82.3 BUN/Creatinine Ratio 18 (6-20) Glucose Level 78mg/dL (70-99) 85mg/dL (70-99) 90mg/dL (70-99) Calcium Level 8.4mg/dL (8.5-10.1) 8.1mg/dL (8.5-10.1) 8.1mg/dL (8.5-10.1) Magnesium Level 2.3mg/dL (1.8-2.4) Total Bilirubin 1.0mg/dL (0.2-1.0) Aspartate Amino Transf (AST/SGOT) 24U/L (15-37) Alanine Aminotransferase (ALT/SGPT) 18U/L (16-63) Alkaline Phosphatase 200U/L (46-116) GD-Grb-A-Type Natriuretic Peptide 5626pg/mL (0-124) Total Protein 7.5g/dL (6.4-8.2) Albumin 3.2g/dL (3.4-5.0) Albumin/Globulin Ratio 0.7 (1.0-1.7) Urine Collection Type Unknown Urine Color Yellow Urine Clarity Clear Urine pH 6.0 Urine Specific [place] 1.010 Urine Protein 100mg/dL (NEG-TRACE) Urine Glucose (UA) Negativemg/dL (NEG) Urine Ketones (Stick) Negativemg/dL (NEG) Urine Blood Negative (NEG) Urine Nitrite Negative (NEG) Urine Bilirubin Negative (NEG) Urine Urobilinogen Dipstick 1.0mg/dL (0.2 mg/dL) Urine Leukocyte Esterase Negative (NEG) Urine RBC 0/HPF (0-2) Urine WBC 1-4/HPF (0-4) Urine Squamous Epithelial Cells Occ/LPF Urine Bacteria Few/HPF (0-FEW) Urine Hyaline Casts Few/HPF Urine Mucus Slight/LPF Uric Acid 7.1mg/dL (3.5-7.2) Iron Level 42ug/dL (65-175) Total Iron Binding Capacity 206ug/dL (250-450) Iron Saturation 20% (15-34) Ferritin 252ng/mL (26-388) Laboratory Tests Test 12/06/16 04:26 White Blood Count 3.6x10^3/uL (4.0-11.0) Red Blood Count 3.15x10^6/uL (4.30-5.70) Hemoglobin 10.0g/dL (13.0-17.5) Hematocrit 30.6% (39.0-53.0) Mean Corpuscular Volume 97fL (79-100) Mean Corpuscular Hemoglobin 32pg (25-35) Mean Corpuscular Hemoglobin Concent 33g/dL (31-37) Red Cell Distribution Width 17.1% (11.5-14.5) Platelet Count 141x10^3/uL (140-400) Neutrophils (%) (Auto) 37% (31-73) Lymphocytes (%) (Auto) 23% (24-48) Monocytes (%) (Auto) 13% (0-9) Eosinophils (%) (Auto) 25% (0-3) Basophils (%) (Auto) 1% (0-3) Neutrophils # (Auto) 1.3x10^3uL (1.8-7.7) Lymphocytes # (Auto) 0.8x10^3/uL (1.0-4.8) Monocytes # (Auto) 0.5x10^3/uL (0.0-1.1) Eosinophils # (Auto) 0.9x10^3/uL (0.0-0.7) Basophils # (Auto) 0.0x10^3/uL (0.0-0.2) Sodium Level 142mmol/L (136-145) Potassium Level 4.0mmol/L (3.5-5.1) Chloride Level 105mmol/L (98-107) Carbon Dioxide Level 30mmol/L (21-32) Anion Gap 7 (6-14) Blood Urea Nitrogen 20mg/dL (8-26) Creatinine 1.1mg/dL (0.7-1.3) Estimated GFR (Cockcroft-Gault) 82.3 Glucose Level 90mg/dL (70-99) Calcium Level 8.1mg/dL (8.5-10.1) Iron Level 42ug/dL (65-175) Total Iron Binding Capacity 206ug/dL (250-450) Iron Saturation 20% (15-34) Ferritin 252ng/mL (26-388) Medications Current Medications Furosemide 40 mg 40 mg 1X ONCE IVP Last administered on 12/04/16 17:59; Start 12/04/16 at 17:00; Stop 12/04/16 at 17:01; Status DC Furosemide/Sodium Chloride (Lasix Drip/Iv Sodium Chloride 0.9% 100ml) 100 ml @ 0 mls/hr CONT PRN IV SEE I/O RECORD Last administered on 12/06/16 09:08; Start 12/04/16 at 16:45 Allopurinol (Zyloprim) 300 mg DAILY PO Last administered on 12/06/16 08:45; Start 12/05/16 at 09:00 Lisinopril (Prinivil) 2.5 mg DAILY PO Last administered on 12/06/16 08:45; Start 12/05/16 at 09:00 Carvedilol (Coreg) 3.125 mg BIDWMEALS PO Last administered on 12/06/16 08:45; Start 12/05/16 at 08:00 Aspirin (Children'S Aspirin) 81 mg DAILYWBKFT PO Last administered on 08:46; Start 12/05/16 at 08:00 Spironolactone 25 mg 25 mg BID94 PO Last administered on 12/06/16 08:46; Start 12/05/16 at 09:00 Thiamine HCl/ Sodium Chloride (Iv Sodium Chloride 0.9% 50ml) 51 ml @ 102 mls/ hr DAILY IV Last administered on 12/06/16 09:08; Start 12/05/16 at 09:00 Nicotine (Nicoderm Cq 7mg) 1 patch DAILY TD Last administered on 12/06/16 08: 46; Start 12/05/16 at 09:00 Chlordiazepoxide (Librium) 10 mg PRN Q4HRS PRN PO ANXIETY; Start 12/04/16 at 21 :45; Stop 12/04/16 at 21:45; Status DC Chlordiazepoxide (Librium) 25 mg Q8HRS PO Last administered on 12/06/16 05:52 ; Start 12/04/16 at 22:00 Chlordiazepoxide (Librium) 10 mg PRN Q4HRS PRN PO ANXIETY; Start 12/04/16 at 21 :45 Nicotine (Nicoderm Cq 7mg) 1 patch 1X ONCE TD Last administered on 12/04/16 22:57; Start 12/04/16 at 22:00; Stop 12/04/16 at 22:01; Status DC Acetaminophen (Tylenol) 650 mg PRN Q6HRS PRN PO MILD PAIN / TEMP Last administered on 12/05/16 20:28; Start 12/05/16 at 14:00 Ondansetron HCl (Zofran) 4 mg PRN Q6HRS PRN IV NAUSEA/VOMITING; Start 12/05/16 at 14:00 Enoxaparin Sodium (Lovenox 40mg Syringe) 40 mg Q24H SQ Last administered on 15:45; Start 12/05/16 at 15:00 Active Scripts Active Lisinopril 2.5 Mg Tablet 1 Tab PO DAILY Metoprolol Tartrate 25 Mg Tablet 1 Tab PO BID Aldactone (Spironolactone) 25 Mg Tablet 25 Mg PO DAILY Furosemide 40 Mg Tablet 40 Mg PO BID Aspirin Ec (Aspirin) 81 Mg Tablet.dr 81 Mg PO DAILYWBKFT Reported Echinacea & Goldenseal Cap (Prado Seal/Echinacea Purpurea) 1 Each Capsule 1 Each PO DAILY Ibuprofen 100 Mg/5 Ml Oral.susp 200 Mg PO DAILY Allopurinol 300 Mg Tablet 1 Tab PO DAILY Spironolactone 25 Mg Tablet 1 Tab PO DAILY Vitals/I & O Vital Sign - Last 24 Hours 12/05/16 12/05/16 12/05/16 12/05/16 14:07 17:30 19:00 20:00 Temp 98.1 98.6 98.1 98.6 Pulse 72 78 78 Resp 20 20 B/P 94/72 114/59 93/61 Pulse Ox 97 96 O2 Delivery Nasal Cannula Room Air Room Air O2 Flow Rate 2.0 12/05/16 12/06/16 12/06/16 12/06/16 23:00 03:33 07:35 08:00 Temp 97.9 96.6 96.7 97.9 96.6 96.7 Pulse 77 72 76 Resp 20 20 20 B/P 104/57 116/64 128/78 Pulse Ox 96 98 100 O2 Delivery Room Air Room Air Room Air Room Air 12/06/16 12/06/16 12/06/16 08:45 08:45 10:15 Temp 96.6 96.6 Pulse 76 76 78 Resp 20 B/P 128/78 128/78 116/72 Pulse Ox 99 O2 Delivery Room Air Intake and Output 12/05/16 12/05/16 12/06/16 15:00 23:00 07:00 Intake Total 1380 ml 180 ml 1160 ml Output Total 850 ml 550 ml 1350 ml Balance 530 ml -370 ml -190 ml MICHAELA HOLLEY MD Dec 06, 2016 12:56
[2016-12-06 14:55] VITALS: BP 114/69
[2016-12-06] MEDS: ENOXAPARIN 40 MG/0.4 ML DISP.SYRIN. SQ SCH (16:27)
--- NOTE | 2016-12-06 18:32 | PDOC ---
Provider Note Provider Note He is still gets very short of breath on walking to the bathroom and back. He continues to diurese. He is off the oxygen. Lungs are clear. Heart no S3. Edema of the thighs and abdominal wall this has improved. Continue IV Lasix. Potassium and renal functions are stable. ZULEYMA MATTA MD Dec 06, 2016 18:32
[2016-12-06 19:00] VITALS: BP 109/62
[2016-12-06 23:06] VITALS: BP 114/61
[2016-12-06] MEDS: FUROSEMIDE 40 MG/4 ML VIAL IVP SCH (23:07)
[2016-12-07 02:37] VITALS: BP 128/75
[2016-12-07 05:48] LABS: CALCIUM 8.3 mg/dL (8.5-10.1); CREATININE 1.1 mg/dL (0.7-1.3); GFR 82.3
[2016-12-07] MEDS: FUROSEMIDE 40 MG/4 ML VIAL IVP SCH ×2 (05:53→11:50)
[2016-12-07] MEDS: CHLORDIAZEPOXIDE HCL 25 MG CAPSULE PO SCH ×3 (05:54→21:02)
[2016-12-07 07:00] VITALS: BP 133/78
--- NOTE | 2016-12-07 07:36 | RAD ---
Clinical Indication: Slurred speech Technique: Study is dated December 06, 2016. CT images of the head were obtained from the skull base to the vertex without IV contrast. There are no comparison studies available. One or more of the following individualized dose reduction techniques were utilized for this examination: 1. Automated exposure control 2. Adjustment of the mA and/or kV according to patient size 3. Use of iterative reconstruction technique Findings: There is diffuse, symmetric prominence of the ventricles and subarachnoid spaces consistent with age-related parenchymal volume loss. There are areas of scattered decreased attenuation in the supratentorial white matter. While nonspecific, findings are likely secondary to small vessel ischemic disease. There is no hemorrhage, extraaxial fluid collection, mass, or midline shift. There is no large vascular distribution infarct. There are vascular calcifications. The posterior fossa and brain stem are unremarkable. Orbits are normal. The visualized paranasal sinuses are clear. There is no skull fracture appreciated on bone level images. Impression: No acute intracranial findings. Brain parenchymal volume loss and minimal probable small vessel ischemic disease.
[2016-12-07] MEDS: LISINOPRIL 2.5 MG TABLET PO SCH (08:37)
[2016-12-07] MEDS: SPIRONOLACTONE 25 MG TABLET PO SCH ×2 (08:37→15:33)
[2016-12-07] MEDS: ALLOPURINOL 300 MG TABLET. PO SCH (08:37)
[2016-12-07] MEDS: CARVEDILOL 3.125 MG TABLET PO SCH ×2 (08:37→15:33)
[2016-12-07] MEDS: ASPIRIN 81 MG TAB.CHEW PO SCH (08:37)
[2016-12-07] MEDS: THIAMINE 100 MG TABLET. PO SCH (08:37)
[2016-12-07] MEDS: NICOTINE 7MG PATCH. TD SCH (08:38)
--- NOTE | 2016-12-07 09:30 | PDOC ---
Subjective: Subjective: Onc f/u- Anemia, eosinophilia, neutrophilia Pt reports he plans to quit drinking and smoking but cannot really tell me his plan to do so. Mild GARNER. LE swelling much better. C/o scrotal swelling. No withdrawal sx. Objective: Vital Signs: Vital Signs Date Time Temp Pulse Resp B/P Pulse Ox O2 Delivery O2 Flow Rate FiO2 12/07/16 08:37 81 128/75 12/07/16 08:00 Room Air 3.0 12/07/16 07:00 97.5 14 95 97.5 Physical Exam: Extremities: Other (1+ edema b/l LE) General: Alert, Oriented X3, Cooperative, No acute distress Lungs: Other (no resp distress) Psych/Mental Status: Mental status NL, Mood NL Labs/Imaging: CBC stable Abd U/S with no HSMG Assessment/Plan A/P: 1. Alcohol abuse 2. Tobacco abuse 3. Mild normocytic anemia- Likely related to alcohol abuse. Iron levels ok. 4. Mild eosinophilia, neutrophilia- Likely related to tobacco abuse 5. Acute on CHF, EF 15% Eosinophilia Pt states he is committed to stopping the alcohol and smoking on DC. Plan: - F/u pending B12, folate, copper - My office will set up f/u in clinic in 1 mth to recheck CBC after smoking and alcohol cessation hopefully in effect. Ok to DC from onc standpoint. GAUDENCIO KIRBY DO Dec 07, 2016 09:30
[2016-12-07 10:31] LABS: FOLATE 2.39 ng/ml (3.2-20.0)
[2016-12-07 11:00] VITALS: BP 99/59
[2016-12-07] MEDS: FUROSEMIDE INJ 100 MG in IV NORMAL SALINE 100ML 100 ML IV PRN ×2 (11:51→21:02)
--- NOTE | 2016-12-07 12:24 | PDOC ---
PROGRESS NOTES Chief Complaint Chief Complaint 1. acute on chronic systolic CHF 2. h/o nonischemia cardiomyopathy 3. tobaccoism 4. PVD 5. Alcoholism 6. anemia ,2/2 chronic dz 7. chronic eos, not clear etiology History of Present Illness History of Present Illness Patient was lying in Bed at the time of evaluation, was in no acute distress, reported exertional SOB, plan of care discussed with pt. Vitals Vitals Vital Signs Date Time Temp Pulse Resp B/P Pulse Ox O2 Delivery O2 Flow Rate FiO2 12/07/16 11:00 98.2 91 99/59 95 Nasal Cannula 3.0 98.2 12/07/16 07:00 14 Physical Exam General: Alert, Oriented X3, Cooperative, No acute distress Heart: Regular rate Lungs: Crackles (bl mild) Abdomen: Soft, No tenderness Extremities: Other (1+ edema b/l LE) Skin: No rashes Labs LABS Laboratory Tests Test 12/07/16 04:25 Sodium Level 143mmol/L (136-145) Potassium Level 4.0mmol/L (3.5-5.1) Chloride Level 104mmol/L (98-107) Carbon Dioxide Level 31mmol/L (21-32) Anion Gap 8 (6-14) Blood Urea Nitrogen 19mg/dL (8-26) Creatinine 1.1mg/dL (0.7-1.3) Estimated GFR (Cockcroft-Gault) 82.3 Glucose Level 84mg/dL (70-99) Calcium Level 8.3mg/dL (8.5-10.1) Review of Systems Review of Systems no Cough, no sputum, exertional SOB, awake, alert, oriented Assessment and Plan Assessmemt and Plan Assessment: 1. acute on chronic systolic CHF 2. h/o nonischemia cardiomyopathy 3. tobaccoism 4. PVD 5. Alcoholism 6. anemia ,2/2 chronic dz 7. chronic eos, not clear etiology Plan: - F/U with card, onco - Agree with Dr. Dhillon's plan of care - Continue PT/OT - Continue care per floor protocol - DVT Prophylaxis - Appreciate subspecialities inputs and recommendations - Problems: Comment Review of Relevant I have reviewed the following items shell (where applicable) has been applied. Labs Laboratory Tests Test 12/06/16 04:26 12/07/16 04:25 White Blood Count 3.6x10^3/uL (4.0-11.0) Red Blood Count 3.15x10^6/uL (4.30-5.70) Hemoglobin 10.0g/dL (13.0-17.5) Hematocrit 30.6% (39.0-53.0) Mean Corpuscular Volume 97fL (79-100) Mean Corpuscular Hemoglobin 32pg (25-35) Mean Corpuscular Hemoglobin Concent 33g/dL (31-37) Red Cell Distribution Width 17.1% (11.5-14.5) Platelet Count 141x10^3/uL (140-400) Neutrophils (%) (Auto) 37% (31-73) Lymphocytes (%) (Auto) 23% (24-48) Monocytes (%) (Auto) 13% (0-9) Eosinophils (%) (Auto) 25% (0-3) Basophils (%) (Auto) 1% (0-3) Neutrophils # (Auto) 1.3x10^3uL (1.8-7.7) Lymphocytes # (Auto) 0.8x10^3/uL (1.0-4.8) Monocytes # (Auto) 0.5x10^3/uL (0.0-1.1) Eosinophils # (Auto) 0.9x10^3/uL (0.0-0.7) Basophils # (Auto) 0.0x10^3/uL (0.0-0.2) Sodium Level 142mmol/L (136-145) 143mmol/L (136-145) Potassium Level 4.0mmol/L (3.5-5.1) 4.0mmol/L (3.5-5.1) Chloride Level 105mmol/L (98-107) 104mmol/L (98-107) Carbon Dioxide Level 30mmol/L (21-32) 31mmol/L (21-32) Anion Gap 7 (6-14) 8 (6-14) Blood Urea Nitrogen 20mg/dL (8-26) 19mg/dL (8-26) Creatinine 1.1mg/dL (0.7-1.3) 1.1mg/dL (0.7-1.3) Estimated GFR (Cockcroft-Gault) 82.3 82.3 Glucose Level 90mg/dL (70-99) 84mg/dL (70-99) Calcium Level 8.1mg/dL (8.5-10.1) 8.3mg/dL (8.5-10.1) Iron Level 42ug/dL (65-175) Total Iron Binding Capacity 206ug/dL (250-450) Iron Saturation 20% (15-34) Ferritin 252ng/mL (26-388) Vitamin B12 Level 258pg/mL (247-911) Serum Folate 2.39ng/ml (3.2-20.0) Laboratory Tests Test 12/07/16 04:25 Sodium Level 143mmol/L (136-145) Potassium Level 4.0mmol/L (3.5-5.1) Chloride Level 104mmol/L (98-107) Carbon Dioxide Level 31mmol/L (21-32) Anion Gap 8 (6-14) Blood Urea Nitrogen 19mg/dL (8-26) Creatinine 1.1mg/dL (0.7-1.3) Estimated GFR (Cockcroft-Gault) 82.3 Glucose Level 84mg/dL (70-99) Calcium Level 8.3mg/dL (8.5-10.1) Medications Current Medications Furosemide 40 mg 40 mg 1X ONCE IVP Last administered on 12/04/16 17:59; Start 12/04/16 at 17:00; Stop 12/04/16 at 17:01; Status DC Furosemide/Sodium Chloride (Lasix Drip/Iv Sodium Chloride 0.9% 100ml) 100 ml @ 0 mls/hr CONT PRN IV SEE I/O RECORD Last administered on 12/06/16 09:08; Start 12/04/16 at 16:45; Stop 12/06/16 at 18:37; Status DC Allopurinol (Zyloprim) 300 mg DAILY PO Last administered on 12/07/16 08:37; Start 12/05/16 at 09:00 Lisinopril (Prinivil) 2.5 mg DAILY PO Last administered on 12/07/16 08:37; Start 12/05/16 at 09:00 Carvedilol (Coreg) 3.125 mg BIDWMEALS PO Last administered on 12/07/16 08:37; Start 12/05/16 at 08:00 Aspirin (Children'S Aspirin) 81 mg DAILYWBKFT PO Last administered on 08:37; Start 12/05/16 at 08:00 Spironolactone 25 mg 25 mg BID94 PO Last administered on 12/07/16 08:37; Start 12/05/16 at 09:00 Thiamine HCl/ Sodium Chloride (Iv Sodium Chloride 0.9% 50ml) 51 ml @ 102 mls/ hr DAILY IV Last administered on 12/06/16 09:08; Start 12/05/16 at 09:00; Stop 12/06/16 at 15:11; Status DC Nicotine (Nicoderm Cq 7mg) 1 patch DAILY TD Last administered on 12/07/16 08: 38; Start 12/05/16 at 09:00 Chlordiazepoxide (Librium) 10 mg PRN Q4HRS PRN PO ANXIETY; Start 12/04/16 at 21 :45; Stop 12/04/16 at 21:45; Status DC Chlordiazepoxide (Librium) 25 mg Q8HRS PO Last administered on 12/07/16 11:50 ; Start 12/04/16 at 22:00 Chlordiazepoxide (Librium) 10 mg PRN Q4HRS PRN PO ANXIETY; Start 12/04/16 at 21 :45 Nicotine (Nicoderm Cq 7mg) 1 patch 1X ONCE TD Last administered on 12/04/16 22:57; Start 12/04/16 at 22:00; Stop 12/04/16 at 22:01; Status DC Acetaminophen (Tylenol) 650 mg PRN Q6HRS PRN PO MILD PAIN / TEMP Last administered on 12/05/16 20:28; Start 12/05/16 at 14:00 Ondansetron HCl (Zofran) 4 mg PRN Q6HRS PRN IV NAUSEA/VOMITING; Start 12/05/16 at 14:00 Enoxaparin Sodium (Lovenox 40mg Syringe) 40 mg Q24H SQ Last administered on 16:27; Start 12/05/16 at 15:00 Thiamine HCl (Vitamin B-1) 100 mg DAILY PO Last administered on 12/07/16 08:37 ; Start 12/07/16 at 09:00 Furosemide 40 mg 40 mg Q6HRS IVP Last administered on 12/07/16 11:50; Start at 00:00 Furosemide/Sodium Chloride (Lasix Drip/Iv Sodium Chloride 0.9% 100ml) 100 ml @ 0 mls/hr CONT PRN IV SEE NOTES Last administered on 12/07/16 11:51; Start at 11:30 Active Scripts Active Lisinopril 2.5 Mg Tablet 1 Tab PO DAILY Metoprolol Tartrate 25 Mg Tablet 1 Tab PO BID Aldactone (Spironolactone) 25 Mg Tablet 25 Mg PO DAILY Furosemide 40 Mg Tablet 40 Mg PO BID Aspirin Ec (Aspirin) 81 Mg Tablet.dr 81 Mg PO DAILYWBKFT Reported Echinacea & Goldenseal Cap (Prado Seal/Echinacea Purpurea) 1 Each Capsule 1 Each PO DAILY Ibuprofen 100 Mg/5 Ml Oral.susp 200 Mg PO DAILY Allopurinol 300 Mg Tablet 1 Tab PO DAILY Spironolactone 25 Mg Tablet 1 Tab PO DAILY Vitals/I & O Vital Sign - Last 24 Hours 12/06/16 12/06/16 12/06/16 12/06/16 14:55 16:28 19:00 19:15 Temp 97.9 98.9 97.9 98.9 Pulse 75 75 83 Resp 20 19 B/P 114/69 114/69 109/62 Pulse Ox 97 94 O2 Delivery Room Air Room Air Room Air 12/06/16 12/07/16 12/07/16 12/07/16 23:06 02:37 07:00 08:00 Temp 97.3 97.5 97.5 97.3 97.5 97.5 Pulse 82 81 87 Resp 20 18 14 B/P 114/61 128/75 133/78 Pulse Ox 97 92 95 O2 Delivery Room Air Room Air Nasal Cannula Room Air O2 Flow Rate 3.0 3.0 12/07/16 12/07/16 12/07/16 08:37 08:37 11:00 Temp 98.2 98.2 Pulse 81 81 91 B/P 128/75 128/75 99/59 Pulse Ox 95 O2 Delivery Nasal Cannula O2 Flow Rate 3.0 Intake and Output 12/06/16 12/06/16 12/07/16 15:00 23:00 07:00 Intake Total 451 ml 225 ml 240 ml Output Total 2350 ml 850 ml 1900 ml Balance -1899 ml -625 ml -1660 ml CAMACHO ARMIJO III DO Dec 07, 2016 12:24
[2016-12-07 15:00] VITALS: BP 107/68
[2016-12-07] MEDS: ENOXAPARIN 40 MG/0.4 ML DISP.SYRIN. SQ SCH (15:47)
[2016-12-07 19:00] VITALS: BP 122/65
--- NOTE | 2016-12-07 20:33 | CARD ---
APPROVED REPORT EXAM: Two-dimensional and M-mode echocardiogram with Doppler and color Doppler. Other Information Quality : Good INDICATION Congestive Heart Failure 2D DIMENSIONS RVDd3.7 (2.9-3.5cm)Left Atrium(2D)4.5 (1.6-4.0cm) IVSd1.1 (0.7-1.1cm)Aortic Root(2D)2.9 (2.0-3.7cm) LVDd5.6 (3.9-5.9cm)LVOT Diameter2.2 (1.8-2.4cm) PWd1.4 (0.7-1.1cm)LVDs4.7 (2.5-4.0cm) FS (%) 16.6 %SV53.3 ml LVEF(%)34.3 (>50%) Aortic Valve AoV Peak Husam.125.5cm/sAoV VTI21.0cm AO Peak GR.6.3mmHgLVOT Peak Husam.100.7cm/s LVOT VTI 16.13cmAO Mean GR.4mmHg ANGELA (VMAX)2.16uh7URA (VTI)2.80cm2 Mitral Valve MV E Rhbfadpq73.7cm/sMV DECEL BMDM554qk MV KLZ97dzODL (PHT)5.71cm2 TDI E/Lateral E'11.3E/Medial E'26.0 Tricuspid Valve TR P. [id number]/sRAP [id number] TR Peak Gr.[id number] Pulmonary Vein S1 Fqfnxabm29.7cm/sD2 Wbyfglqj36.9cm/s PVa [id number] LEFT VENTRICLE The left ventricle mildly enlarged to 5.63 cms.. There is mild concentric left ventricular hypertroph y. Left ventricle systolic function is moderately impaired. The Ejection Fraction is 30-35%. There is global hypokinesis of the left ventricle. RIGHT VENTRICLE The right ventricle is normal size. The right ventricular systolic function is normal. ATRIA The left atrium is mildly dilated. The right atrium is moderately dilated. The interatrial septum is intact with no evidence for an atrial septal defect or patent foramen ovale as noted on 2-D or Dopple r imaging. AORTIC VALVE The aortic valve is moderately thickened but opens well. Doppler and Color Flow revealed no significa nt aortic regurgitation. There is no significant aortic valvular stenosis. MITRAL VALVE The mitral valve is normal in structure and function. There is no evidence of mitral valve prolapse. There is no mitral valve stenosis. Doppler and Color-flow revealed mild mitral regurgitation. TRICUSPID VALVE The tricuspid valve is normal in structure and function. Doppler and Color Flow revealed mild tricusp id regurgitation. There is moderate pulmonary hypertension. The PA pressure was estimated at 53 mmHg. There is no tricuspid valve stenosis. PULMONIC VALVE The pulmonary valve is normal in structure and function. Doppler and Color Flow revealed mild pulmoni c valvular regurgitation. There is no pulmonic valvular stenosis. GREAT VESSELS The aortic root is normal in size. The ascending aorta is normal in size. The IVC is normal in size a nd collapses >50% with inspiration. PERICARDIAL EFFUSION There is no evidence of significant pericardial effusion. Critical Notification Critical Value: No <Conclusion> The left ventricle mildly enlarged to 5.63 cms.. There is mild concentric left ventricular hypertrophy. Left ventricle systolic function is moderately impaired. The Ejection Fraction is 30-35%. There is global hypokinesis of the left ventricle. There is a diastolic dysfunction. There is no evidence of significant pericardial effusion. There is no mitral stenosis and a mild mitral regurgitation. The left atrium is enlarged. There is no aortic stenosis or regurgitation The right ventricle is of a normal size with normal ststolic function. Doppler and Color Flow revealed mild tricuspid regurgitation. There is moderate pulmonary hypertension. The PA pressure was estimated at 53 mmHg. Doppler and Color Flow revealed mild pulmonic valvular regurgitation.
--- NOTE | 2016-12-07 21:18 | PDOC ---
Provider Note Provider Note He says he is urinating a lot and in fact has two urinals close to him. He continues to be short of breath. However the nurse tells me that he gained 4 pounds today and there has been no significant weight loss since admission. This is very surprising. Continues to have edema over the lower abdomen and thigh. Lungs are clear. BP pressure is stable. Renal functions are stable. Echocardiogram done today showed an EF of 30-35% looks a little better than in August 2016. The E over E prime ratio is elevated indicating a raised left atrial filling pressure. Will thus place him back on the Lasix drip at a higher dose of 10 mg a day and add Zaroxolyn. He is very concerned about the hydrocele and will request neurology to see. ZULEYMA MATTA MD Dec 07, 2016 21:18
[2016-12-07 23:00] VITALS: BP 131/74
[2016-12-08 03:04] VITALS: BP 132/82
[2016-12-08] MEDS: CHLORDIAZEPOXIDE HCL 25 MG CAPSULE PO SCH ×2 (05:38→16:08)
[2016-12-08 07:00] VITALS: BP 136/75
[2016-12-08] MEDS: METOLAZONE 2.5 MG TABLET PO SCH (08:29)
[2016-12-08] MEDS: FUROSEMIDE INJ 100 MG in IV NORMAL SALINE 100ML 100 ML IV PRN ×2 (08:29→19:13)
[2016-12-08] MEDS: CYANOCOBALAMIN (VITAMIN B-12) 1,000 MCG/ML VIAL IM SCH (08:30)
[2016-12-08] MEDS: ASPIRIN 81 MG TAB.CHEW PO SCH (08:30)
[2016-12-08] MEDS: CARVEDILOL 3.125 MG TABLET PO SCH ×2 (08:30→16:08)
[2016-12-08] MEDS: LISINOPRIL 2.5 MG TABLET PO SCH (08:30)
[2016-12-08] MEDS: ALLOPURINOL 300 MG TABLET. PO SCH (08:30)
[2016-12-08] MEDS: SPIRONOLACTONE 25 MG TABLET PO SCH ×2 (08:30→16:08)
[2016-12-08] MEDS: THIAMINE 100 MG TABLET. PO SCH (08:30)
[2016-12-08] MEDS: NICOTINE 7MG PATCH. TD SCH (08:31)
[2016-12-08 11:00] VITALS: BP 112/64
--- NOTE | 2016-12-08 11:48 | PDOC ---
PROGRESS NOTES Chief Complaint Chief Complaint 1. acute on chronic systolic CHF 2. h/o nonischemia cardiomyopathy 3. tobaccoism 4. PVD 5. Alcoholism 6. anemia ,2/2 chronic dz 7. chronic eos, not clear etiology History of Present Illness History of Present Illness Patient was sitting in the chair, was ready to go down to radiology, was in no acute distress, reported no overnight acute events. I agree with Dr. Dhillon' s plan of care. Vitals Vitals Vital Signs Date Time Temp Pulse Resp B/P Pulse Ox O2 Delivery O2 Flow Rate FiO2 12/08/16 11:00 98.0 94 18 112/64 94 Room Air 98.0 12/07/16 11:00 3.0 Physical Exam General: Alert, Oriented X3, Cooperative, No acute distress Heart: Regular rate Lungs: Crackles (bl mild) Abdomen: Soft, No tenderness Extremities: Other (1+ edema b/l LE) Skin: No rashes Review of Systems Review of Systems Afebrile, awake, alert, oriented, no CP, Assessment and Plan Assessmemt and Plan Assessment: 1. acute on chronic systolic CHF 2. h/o nonischemia cardiomyopathy 3. tobaccoism 4. PVD 5. Alcoholism 6. anemia ,2/2 chronic dz 7. chronic eos, not clear etiology Plan: - F/U with card, onco - Agree with Dr. Dhillon's plan of care - Continue PT/OT - Continue care per floor protocol - DVT Prophylaxis - Appreciate subspecialities inputs and recommendation Problems: Comment Review of Relevant I have reviewed the following items shell (where applicable) has been applied. Labs Laboratory Tests Test 12/07/16 04:25 Sodium Level 143mmol/L (136-145) Potassium Level 4.0mmol/L (3.5-5.1) Chloride Level 104mmol/L (98-107) Carbon Dioxide Level 31mmol/L (21-32) Anion Gap 8 (6-14) Blood Urea Nitrogen 19mg/dL (8-26) Creatinine 1.1mg/dL (0.7-1.3) Estimated GFR (Cockcroft-Gault) 82.3 Glucose Level 84mg/dL (70-99) Calcium Level 8.3mg/dL (8.5-10.1) Medications Current Medications Furosemide 40 mg 40 mg 1X ONCE IVP Last administered on 12/04/16 17:59; Start 12/04/16 at 17:00; Stop 12/04/16 at 17:01; Status DC Furosemide/Sodium Chloride (Lasix Drip/Iv Sodium Chloride 0.9% 100ml) 100 ml @ 0 mls/hr CONT PRN IV SEE I/O RECORD Last administered on 12/06/16 09:08; Start 12/04/16 at 16:45; Stop 12/06/16 at 18:37; Status DC Allopurinol (Zyloprim) 300 mg DAILY PO Last administered on 12/08/16 08:30; Start 12/05/16 at 09:00 Lisinopril (Prinivil) 2.5 mg DAILY PO Last administered on 12/08/16 08:30; Start 12/05/16 at 09:00 Carvedilol (Coreg) 3.125 mg BIDWMEALS PO Last administered on 12/08/16 08:30; Start 12/05/16 at 08:00 Aspirin (Children'S Aspirin) 81 mg DAILYWBKFT PO Last administered on 08:30; Start 12/05/16 at 08:00 Spironolactone 25 mg 25 mg BID94 PO Last administered on 12/08/16 08:30; Start 12/05/16 at 09:00 Thiamine HCl/ Sodium Chloride (Iv Sodium Chloride 0.9% 50ml) 51 ml @ 102 mls/ hr DAILY IV Last administered on 12/06/16 09:08; Start 12/05/16 at 09:00; Stop 12/06/16 at 15:11; Status DC Nicotine (Nicoderm Cq 7mg) 1 patch DAILY TD Last administered on 12/08/16 08: 31; Start 12/05/16 at 09:00 Chlordiazepoxide (Librium) 10 mg PRN Q4HRS PRN PO ANXIETY; Start 12/04/16 at 21 :45; Stop 12/04/16 at 21:45; Status DC Chlordiazepoxide (Librium) 25 mg Q8HRS PO Last administered on 12/08/16 05:38 ; Start 12/04/16 at 22:00 Chlordiazepoxide (Librium) 10 mg PRN Q4HRS PRN PO ANXIETY; Start 12/04/16 at 21 :45 Nicotine (Nicoderm Cq 7mg) 1 patch 1X ONCE TD Last administered on 12/04/16 22:57; Start 12/04/16 at 22:00; Stop 12/04/16 at 22:01; Status DC Acetaminophen (Tylenol) 650 mg PRN Q6HRS PRN PO MILD PAIN / TEMP Last administered on 12/05/16 20:28; Start 12/05/16 at 14:00 Ondansetron HCl (Zofran) 4 mg PRN Q6HRS PRN IV NAUSEA/VOMITING; Start 12/05/16 at 14:00 Enoxaparin Sodium (Lovenox 40mg Syringe) 40 mg Q24H SQ Last administered on 15:47; Start 12/05/16 at 15:00 Thiamine HCl (Vitamin B-1) 100 mg DAILY PO Last administered on 12/08/16 08:30 ; Start 12/07/16 at 09:00 Furosemide 40 mg 40 mg Q6HRS IVP Last administered on 12/07/16 11:50; Start at 00:00; Stop 12/07/16 at 12:16; Status DC Furosemide/Sodium Chloride (Lasix Drip/Iv Sodium Chloride 0.9% 100ml) 100 ml @ 0 mls/hr CONT PRN IV SEE NOTES Last administered on 12/08/16 08:29; Start at 11:30 Cyanocobalamin (Vitamin B-12) 1,000 mcg DAILY IM Last administered on 08:30; Start 12/08/16 at 09:00 Metolazone (Zaroxolyn) 5 mg DAILY PO Last administered on 12/08/16 08:29; Start 12/08/16 at 09:00 Active Scripts Active Lisinopril 2.5 Mg Tablet 1 Tab PO DAILY Metoprolol Tartrate 25 Mg Tablet 1 Tab PO BID Aldactone (Spironolactone) 25 Mg Tablet 25 Mg PO DAILY Furosemide 40 Mg Tablet 40 Mg PO BID Aspirin Ec (Aspirin) 81 Mg Tablet.dr 81 Mg PO DAILYWBKFT Reported Echinacea & Goldenseal Cap (Prado Seal/Echinacea Purpurea) 1 Each Capsule 1 Each PO DAILY Ibuprofen 100 Mg/5 Ml Oral.susp 200 Mg PO DAILY Allopurinol 300 Mg Tablet 1 Tab PO DAILY Spironolactone 25 Mg Tablet 1 Tab PO DAILY Vitals/I & O Vital Sign - Last 24 Hours 12/07/16 12/07/16 12/07/16 12/07/16 15:00 15:33 19:00 19:10 Temp 98.2 98.1 98.2 98.1 Pulse 86 86 86 Resp 16 20 B/P 107/68 107/68 122/65 Pulse Ox 96 92 O2 Delivery Room Air Room Air Room Air 12/07/16 12/08/16 12/08/16 12/08/16 23:00 03:04 07:00 08:30 Temp 99.0 98.4 98.2 99.0 98.4 98.2 Pulse 87 89 94 94 Resp 20 20 18 B/P 131/74 132/82 136/75 136/75 Pulse Ox 95 91 92 O2 Delivery Room Air Room Air Room Air 12/08/16 12/08/16 08:30 11:00 Temp 98.0 98.0 Pulse 94 94 Resp 18 B/P 136/75 112/64 Pulse Ox 94 O2 Delivery Room Air Intake and Output 12/07/16 12/07/16 12/08/16 15:00 23:00 07:00 Intake Total 720 ml 460 ml 680 ml Output Total 3100 ml 2975 ml 4150 ml Balance -2380 ml -2515 ml -3470 ml CAMACHO ARMIJO III DO Dec 08, 2016 11:47
--- NOTE | 2016-12-08 13:35 | RAD ---
Indication: Heart failure. Technique: Two-view chest radiograph was obtained and compared to a study from 4 days earlier. Findings: Heart remains upper limit of normal in size. Mild vascular congestion noted on prior study appears decreased but still present. No focal airspace disease is apparent. Minimal effusions are noted on the lateral film. Bony structures are intact. Leads overlie the patient. Impression: Minimal bilateral pleural effusions.
[2016-12-08 15:00] VITALS: BP 109/68
[2016-12-08] MEDS: ENOXAPARIN 40 MG/0.4 ML DISP.SYRIN. SQ SCH (16:09)
[2016-12-08 19:00] VITALS: BP 109/63
--- NOTE | 2016-12-08 20:49 | PDOC ---
Provider Note Provider Note Patient says he urinated a lot. Nurses recorded a weight of 213 pounds this evening. Chest x-ray still shows pulmonary vascular congestion. Plan to discharge him tomorrow. He promises not to go back on alcohol. ZULEYMA MATTA MD Dec 08, 2016 20:49
[2016-12-08 23:00] VITALS: BP 113/60
[2016-12-09 03:10] VITALS: BP 97/48
[2016-12-09 04:55] LABS: CALCIUM 9.1 mg/dL (8.5-10.1); GFR 91.9; POTASSIUM 3.4 mmol/L (3.5-5.1)
[2016-12-09 04:57] LABS: CHOLESTEROL/HDL RATIO 2.5
[2016-12-09 07:00] VITALS: BP 120/73
[2016-12-09] MEDS: SPIRONOLACTONE 25 MG TABLET PO SCH (08:17)
[2016-12-09] MEDS: NICOTINE 7MG PATCH. TD SCH (08:17)
[2016-12-09] MEDS: ASPIRIN 81 MG TAB.CHEW PO SCH (08:17)
[2016-12-09] MEDS: CARVEDILOL 3.125 MG TABLET PO SCH (08:18)
[2016-12-09] MEDS: ALLOPURINOL 300 MG TABLET. PO SCH (08:18)
[2016-12-09] MEDS: THIAMINE 100 MG TABLET. PO SCH (08:18)
[2016-12-09] MEDS: LISINOPRIL 2.5 MG TABLET PO SCH (08:18)
[2016-12-09] MEDS: CYANOCOBALAMIN (VITAMIN B-12) 1,000 MCG/ML VIAL IM SCH (08:19)
[2016-12-09] MEDS: METOLAZONE 2.5 MG TABLET PO SCH (08:19)
[2016-12-09] MEDS ORDERED: FUROSEMIDE 80 MG TABLET PO SCH (09:00)
[2016-12-09 11:00] VITALS: BP_SYST 102; BP_SYST 96; BP_DIAS 55; BP_DIAS 57
[2016-12-09] MEDS ORDERED: POTASSIUM CHLORIDE 20 MEQ TABLET.ER. PO ONE (11:45)
--- NOTE | 2016-12-09 13:37 | PDOC ---
PROGRESS NOTES Chief Complaint Chief Complaint 1. acute on chronic systolic CHF 2. h/o nonischemia cardiomyopathy 3. tobaccoism 4. PVD 5. Alcoholism 6. anemia ,2/2 chronic dz 7. chronic eos, not clear etiology History of Present Illness History of Present Illness Patient was sitting in the bed, eating his lunch, reported feeling better, edema reduced, no CP, reported no overnight acute events. I agree with Dr. Dhillon's plan of care. Vitals Vitals Vital Signs Date Time Temp Pulse Resp B/P Pulse Ox O2 Delivery O2 Flow Rate FiO2 12/09/16 11:00 97.5 91 19 96/57 97 Room Air 97.5 Physical Exam General: Alert, Oriented X3, Cooperative, No acute distress Heart: Regular rate Lungs: Crackles (bl mild) Abdomen: Soft, No tenderness Extremities: Other (1+ edema b/l LE) Skin: No rashes Labs LABS Laboratory Tests Test 12/09/16 03:45 Sodium Level 142mmol/L (136-145) Potassium Level 3.4mmol/L (3.5-5.1) Chloride Level 96mmol/L (98-107) Carbon Dioxide Level 43mmol/L (21-32) Anion Gap 3 (6-14) Blood Urea Nitrogen 17mg/dL (8-26) Creatinine 1.0mg/dL (0.7-1.3) Estimated GFR (Cockcroft-Gault) 91.9 Glucose Level 103mg/dL (70-99) Calcium Level 9.1mg/dL (8.5-10.1) Magnesium Level 2.0mg/dL (1.8-2.4) Triglycerides Level 55mg/dL (0-150) Cholesterol Level 116mg/dL (0-200) LDL Cholesterol, Calculated 58mg/dL (0-100) VLDL Cholesterol, Calculated 11mg/dL (0-40) HDL Cholesterol 47mg/dL (40-60) Cholesterol/HDL Ratio 2.5 Review of Systems Review of Systems Denies fever, chills Denies any acute distress no CP feeling much better than yesterday reduced edema in thighs Assessment and Plan Assessmemt and Plan Assessment: 1. acute on chronic systolic CHF 2. h/o nonischemia cardiomyopathy 3. tobaccoism 4. PVD 5. Alcoholism 6. anemia ,2/2 chronic dz 7. chronic eos, not clear etiology Plan: - Probable discharge today - Agree with Dr. Dhillon's plan of care - Continue PT/OT - Continue care per floor protocol - DVT Prophylaxis - Appreciate subspecialities inputs and recommendation Problems Medical Problems: (1) SOB (shortness of breath) Status: Acute Problems: Comment Review of Relevant I have reviewed the following items shell (where applicable) has been applied. Labs Laboratory Tests Test 12/09/16 03:45 Sodium Level 142mmol/L (136-145) Potassium Level 3.4mmol/L (3.5-5.1) Chloride Level 96mmol/L (98-107) Carbon Dioxide Level 43mmol/L (21-32) Anion Gap 3 (6-14) Blood Urea Nitrogen 17mg/dL (8-26) Creatinine 1.0mg/dL (0.7-1.3) Estimated GFR (Cockcroft-Gault) 91.9 Glucose Level 103mg/dL (70-99) Calcium Level 9.1mg/dL (8.5-10.1) Magnesium Level 2.0mg/dL (1.8-2.4) Triglycerides Level 55mg/dL (0-150) Cholesterol Level 116mg/dL (0-200) LDL Cholesterol, Calculated 58mg/dL (0-100) VLDL Cholesterol, Calculated 11mg/dL (0-40) HDL Cholesterol 47mg/dL (40-60) Cholesterol/HDL Ratio 2.5 Laboratory Tests Test 12/09/16 03:45 Sodium Level 142mmol/L (136-145) Potassium Level 3.4mmol/L (3.5-5.1) Chloride Level 96mmol/L (98-107) Carbon Dioxide Level 43mmol/L (21-32) Anion Gap 3 (6-14) Blood Urea Nitrogen 17mg/dL (8-26) Creatinine 1.0mg/dL (0.7-1.3) Estimated GFR (Cockcroft-Gault) 91.9 Glucose Level 103mg/dL (70-99) Calcium Level 9.1mg/dL (8.5-10.1) Magnesium Level 2.0mg/dL (1.8-2.4) Triglycerides Level 55mg/dL (0-150) Cholesterol Level 116mg/dL (0-200) LDL Cholesterol, Calculated 58mg/dL (0-100) VLDL Cholesterol, Calculated 11mg/dL (0-40) HDL Cholesterol 47mg/dL (40-60) Cholesterol/HDL Ratio 2.5 Medications Current Medications Furosemide 40 mg 40 mg 1X ONCE IVP Last administered on 12/04/16 17:59; Start 12/04/16 at 17:00; Stop 12/04/16 at 17:01; Status DC Furosemide/Sodium Chloride (Lasix Drip/Iv Sodium Chloride 0.9% 100ml) 100 ml @ 0 mls/hr CONT PRN IV SEE I/O RECORD Last administered on 12/06/16 09:08; Start 12/04/16 at 16:45; Stop 12/06/16 at 18:37; Status DC Allopurinol (Zyloprim) 300 mg DAILY PO Last administered on 12/09/16 08:18; Start 12/05/16 at 09:00 Lisinopril (Prinivil) 2.5 mg DAILY PO Last administered on 12/09/16 08:18; Start 12/05/16 at 09:00 Carvedilol (Coreg) 3.125 mg BIDWMEALS PO Last administered on 12/09/16 08:18; Start 12/05/16 at 08:00 Aspirin (Children'S Aspirin) 81 mg [id number] PO Last administered on 08:17; Start 12/05/16 at 08:00 Spironolactone 25 mg 25 mg [id number] PO Last administered on 12/09/16 08:17; Start 12/05/16 at 09:00 Thiamine HCl/ Sodium Chloride (Iv Sodium Chloride 0.9% 50ml) 51 ml @ 102 mls/ hr DAILY IV Last administered on 12/06/16 09:08; Start 12/05/16 at 09:00; Stop 12/06/16 at 15:11; Status DC Nicotine (Nicoderm Cq 7mg) 1 patch DAILY TD Last administered on 12/09/16 08: 17; Start 12/05/16 at 09:00 Chlordiazepoxide (Librium) 10 mg PRN Q4HRS PRN PO ANXIETY; Start 12/04/16 at 21 :45; Stop 12/04/16 at 21:45; Status DC Chlordiazepoxide (Librium) 25 mg Q8HRS PO Last administered on 12/08/16 16:08 ; Start 12/04/16 at 22:00; Stop 12/08/16 at 20:46; Status DC Chlordiazepoxide (Librium) 10 mg PRN Q4HRS PRN PO ANXIETY; Start 12/04/16 at 21 :45 Nicotine (Nicoderm Cq 7mg) 1 patch 1X ONCE TD Last administered on 12/04/16 22:57; Start 12/04/16 at 22:00; Stop 12/04/16 at 22:01; Status DC Acetaminophen (Tylenol) 650 mg PRN Q6HRS PRN PO MILD PAIN / TEMP Last administered on 12/05/16 20:28; Start 12/05/16 at 14:00 Ondansetron HCl (Zofran) 4 mg PRN Q6HRS PRN IV NAUSEA/VOMITING; Start 12/05/16 at 14:00 Enoxaparin Sodium (Lovenox 40mg Syringe) 40 mg Q24H SQ Last administered on 16:09; Start 12/05/16 at 15:00 Thiamine HCl (Vitamin B-1) 100 mg DAILY PO Last administered on 12/09/16 08:18 ; Start 12/07/16 at 09:00 Furosemide 40 mg 40 mg Q6HRS IVP Last administered on 12/07/16 11:50; Start at 00:00; Stop 12/07/16 at 12:16; Status DC Furosemide/Sodium Chloride (Lasix Drip/Iv Sodium Chloride 0.9% 100ml) 100 ml @ 0 mls/hr CONT PRN IV SEE NOTES Last administered on 12/08/16 19:13; Start at 11:30; Stop 12/08/16 at 20:46; Status DC Cyanocobalamin (Vitamin B-12) 1,000 mcg DAILY IM Last administered on 08:19; Start 12/08/16 at 09:00 Metolazone (Zaroxolyn) 5 mg DAILY PO Last administered on 12/09/16 08:19; Start 12/08/16 at 09:00 Furosemide (Lasix) 80 mg [id number] PO Last administered on 12/09/16 08:18; Start 12/09/16 at 09:00 Potassium Chloride (Klor-Con) 40 meq 1X ONCE PO Last administered on t 11:57; Start 12/09/16 at 11:45; Stop 12/09/16 at 11:46; Status DC Active Scripts Active Lisinopril 2.5 Mg Tablet 1 Tab PO DAILY Metoprolol Tartrate 25 Mg Tablet 1 Tab PO BID Aldactone (Spironolactone) 25 Mg Tablet 25 Mg PO DAILY Furosemide 40 Mg Tablet 40 Mg PO BID Aspirin Ec (Aspirin) 81 Mg Tablet.dr 81 Mg PO [id number] Reported Echinacea & Goldenseal Cap (Prado Seal/Echinacea Purpurea) 1 Each Capsule 1 Each PO DAILY Ibuprofen 100 Mg/5 Ml Oral.susp 200 Mg PO DAILY Allopurinol 300 Mg Tablet 1 Tab PO DAILY Spironolactone 25 Mg Tablet 1 Tab PO DAILY Vitals/I & O Vital Sign - Last 24 Hours 12/08/16 12/08/16 12/08/16 12/08/16 15:00 16:08 19:00 19:38 Temp 98.1 98.0 98.1 98.0 Pulse 88 88 85 Resp 18 20 B/P 109/68 109/68 109/63 Pulse Ox 95 91 O2 Delivery Room Air Room Air Room Air 12/08/16 12/09/16 12/09/16 12/09/16 23:00 03:10 07:00 08:00 Temp 98.3 98.1 96.3 98.3 98.1 96.3 Pulse 87 87 93 Resp 20 20 19 B/P 113/60 97/48 120/73 Pulse Ox 93 91 94 O2 Delivery Room Air Room Air Room Air Room Air 12/09/16 12/09/16 12/09/16 12/09/16 08:18 08:18 11:00 11:00 Temp 97.5 97.5 Pulse 93 93 91 Resp 19 B/P 120/73 120/73 102/55 96/57 Pulse Ox 97 O2 Delivery Room Air Intake and Output 12/08/16 12/08/16 12/09/16 15:00 23:00 07:00 Intake Total 350 ml 360 ml Output Total 2430 ml 3950 ml 1800 ml Balance -2430 ml -3600 ml -1440 ml CAMACHO ARMIJO III DO Dec 09, 2016 13:37
--- NOTE | 2016-12-10 01:04 | DS ---
DATE OF DISCHARGE: 12/09/2016 HOSPITAL COURSE: This is a 61-year-old black male who came in with anasarca with severe edema of his legs, thighs and abdominal wall. He was also short of breath with a chest x-ray showing pulmonary vascular congestion. He had been on Lasix 40 mg a day and was compliant with it. He underwent an echocardiogram. The left ventricle was enlarged to 5.63 cm. There was mild concentric left ventricular hypertrophy. The ejection fraction was 30%-35%. There was a diastolic dysfunction. There was mild mitral regurgitation. There was moderate pulmonary hypertension with pulmonary artery systolic pressure of 53 mmHg. He was placed on IV Lasix. This failed to decrease his rate. He was then placed on IV Lasix drip at first at 5 mg ____ and then 10 mg ____. He was also given Zaroxolyn 5 mg with which he diuresed very well and finally lost about 30 pounds. He was feeling better. The lungs were clear. However, the chest x-ray continued to show pulmonary vascular congestion. He was informed that the cardiomyopathy was due to his alcoholism. He promised not to take alcohol. During this time, delirium tremens was averted by giving him chlordiazepoxide. Laboratory investigations showed hemoglobin of 10 g percent. He did have eosinophilia with eosinophil count being 25%. He was seen in consultation by the historic sites registrar who could not determine why he had eosinophilia, and he do not think that this need to be further evaluated. The sodium was 142, potassium 3.4, BUN is 17 and creatinine was 1. He was given an extra dose of potassium chloride at the time of discharge. His serum cholesterol was 116, triglycerides 55, HDL cholesterol was 47 and LDL cholesterol was 58. The B12 level was low at 258. He was given a few doses of IM B12. He was also given thiamine IV and then oral. The ferritin was 252. The iron was low at 42 and total iron binding capacity was also 206. Because of the eosinophilia, he underwent Strongyloides IgG antibody which was positive. This will be looked into and I will make sure this was taken care of as outpatient. His oxygen saturation remained above 90% throughout his stay on room air. He was thus discharged. FINAL DIAGNOSES: 1. Acute on chronic congestive heart failure, systolic. 2. Alcoholic cardiomyopathy. 3. 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 4. B12 deficiency. HOMEGOING INSTRUCTIONS: 1. Activities to tolerance. 2. A 2 g sodium diet. 3. He was asked to weigh himself every day and take extra Lasix if needed and this would be facilitated by the visiting nurses. 4. Furosemide 80 mg p.o. twice a day. 5. Metolazone 2.5 mg every other day. 6. B12 1000 mcg a day. 7. Thiamine 100 mg a day. 8. Nicotine patches. 9. Spironolactone 25 mg twice a day. 10. Lisinopril 2.5 mg a day. 11. Allopurinol 300 mg a day. 12. Aspirin 81 mg a day. 13. Metoprolol tartrate 25 mg twice a day. 14. He will have visiting nurses see him and they will initiate him into the heart failure program. He will be seen in the office in 1 week. ZULEYMA MATTA MD DR: GIOVANNA/kg JOB#: [id number] / [id number]
== END 2016-12-09 16:40 | disposition home health service (06) | DRG 291 ==
LOC: 5 NORTH 15:15
PROVIDERS: ADMIT Specialist; ATTEND Specialist
DX: I11.0 Hypertensive heart disease with heart failure (principal); J96.90 Respiratory failure, unspecified, unspecified whether with hypoxia or hypercapnia; B78.9 Strongyloidiasis, unspecified; I50.23 Acute on chronic systolic (congestive) heart failure; I42.6 Alcoholic cardiomyopathy; D64.9 Anemia, unspecified; D72.1 Eosinophilia; E53.8 Deficiency of other specified B group vitamins; F17.210 Nicotine dependence, cigarettes, uncomplicated; I08.1 Rheumatic disorders of both mitral and tricuspid valves; M19.90 Unspecified osteoarthritis, unspecified site; I27.2 Other secondary pulmonary hypertension; I73.9 Peripheral vascular disease, unspecified; M10.9 Gout, unspecified; N50.89 Other specified disorders of the male genital organs; Z79.82 Long term (current) use of aspirin; Z82.49 Family history of ischemic heart disease and other diseases of the circulatory system; Z91.11 Patient's noncompliance with dietary regimen; Z91.19 Patient's noncompliance with other medical treatment and regimen; Z83.3 Family history of diabetes mellitus; Z79.899 Other long term (current) drug therapy
CPT/HCPCS: 36415; 70450; 71020; 76700; 80048; 80053; 80061; 81001; 82607; 82728; 82746; 83540; 83550; 83735; 83880; 84550; 85027; 93005; 93306; 94799; 99406; J1650; J1940; J3420